=== PATIENT | female | born 1970 | race Caucasian/White ===

== ENCOUNTER 2018-07-28 15:29 | Emergency (ER) | payer OTHER, SELFPAY ==
[2018-07-28 15:33] VITALS: BP 152/89; PULSE 90; RESP 15; TEMP 36.4; O2SAT 100; BMI 28.0
--- NOTE | 2018-07-28 18:11 | DI.US.S_ITS ---
PROCEDURE: US PELVIC COMPLETE INDICATIONS: Vaginal bleeding TECHNIQUE: Real-time scanning was performed of the pelvic organs, with image documentation. Additional endovaginal scanning was necessary due to incomplete visualization of the adnexal and endometrial structures by transabdominal scanning. COMPARISON: None. FINDINGS: Transabdominal scanning: Limited scanning through the kidneys shows no hydronephrosis. No pathologic free abdominal or pelvic fluid. Endovaginal scanning: Uterus: Uterus is normal in size at 9.7 x 5.3 x 7.2 cm. The endometrium measures 5 mm in combined thickness. No gross endometrial mass or fluid. 1.8 x 1.1 x 2.1 cm intramural fibroid is seen in posterior myometrium. Ovaries: Right ovary measures 2.1 x 2.8 x 2.3 cm in size. Left ovary measures 4.4 x 3 x 4.3 cm in size. Complex cystic structures are noted in the left ovary measures 2.1 x 2.1 x 2.7 cm in size and 2.2 x 1.7 x 1.5 cm in size. No gross internal vascularity is seen. IMPRESSION: 1. 2 possible hemorrhagic cysts or complex cysts in left ovary as above. No gross solid right ovarian lesion. No evidence of laryngeal lesion. 2. No endometrial mass or fluid. 1.8 x 1.1 x 2.1 cm intramural fibroid in posterior myometrium. Dictated by: Juve Walker M.D. on 07/28/2018 at 19:50 Approved by: Juve Walker M.D. on 07/28/2018 at 19:53
--- NOTE | 2018-07-28 19:00 | DI.US.S_ITS ---
PROCEDURE: US ABDOMEN COMPLETE INDICATIONS: abd pain TECHNIQUE: Real-time scanning was performed of the abdominal and retroperitoneal organs, with image documentation. COMPARISON: None. FINDINGS: Liver: Liver is normal in size and homogeneous in echotexture. Gallbladder: Gallbladder is within normal limits. No gallbladder wall thickening or pericholecystic fluid. No sonographic Martel's sign. Biliary ducts: Intrahepatic bile ducts are non-dilated. Extrahepatic bile duct caliber measures 5 mm. Normal is 6-7 mm or less in diameter, or 10 mm or less post-cholecystectomy. Pancreas: Visualized portions of the pancreas are sonographically normal. Spleen: Spleen is normal in size and homogeneous in echotexture. Kidneys: Kidneys are normal in size and echotexture. Right kidney measures 11.2 cm long; left kidney measures 11.8 cm long. No hydronephrosis or nephrolithiasis. No solid masses. Aorta: Visualized aorta is normal in caliber at less than 3 cm. Iliacs: Proximal common iliac arteries are normal in caliber at less than 2.5 cm. IVC: Intrahepatic inferior vena cava is patent. Miscellaneous: No free abdominal fluid. IMPRESSION: Unremarkable ultrasound examination of abdomen. No finding to explain patient's symptoms. Dictated by: Juve Walker M.D. on 07/28/2018 at 19:48 Approved by: Juve Walker M.D. on 07/28/2018 at 19:50
[2018-07-28 19:08] LABS: Add Manual Diff / Slide Review NO; Basophils Percent Auto 0.8 % (0-2); Eosinophils Percent Auto 6.2 % (2-4); Hematocrit 42.6 % (36-46); Hemoglobin 14.3 g/dL (12.0-16.0); Lymphocytes Percent Auto 23.2 % (25-40); Mean Corpuscular HGB Conc 33.4 % (30-36); Mean Corpuscular Hemoglobin 32.1 PG (26-34); Mean Corpuscular Volume 96.1 fL (80-100); Monocytes Percent Auto 5.9 % (3-14); Neutrophils Absolute Auto 8600 /uL (3000-5900); Neutrophils Percent Auto 63.9 % (50-75); Platelet Count 316 X10^3/uL (150-400); Red Blood Cell Count 4.44 X10^6/uL (4.0-5.2); Red Cell Distribution Width 13.9 % (11.6-14.8); White Blood Cell Count 13.5 X10^3/uL (4.5-11.0)
[2018-07-28 19:20] LABS: Alanine Aminotransferase 28 IU/L (9-52); Albumin 4.6 g/dL (3.5-5.0); Albumin Globulin Ratio 1.5 (1.0-2.8); Alkaline Phosphatase 67 U/L (38-126); Amylase 90 U/L (30-110); Aspartate Aminotransferase 29 IU/L (14-36); Bilirubin Total 0.4 mg/dL (0.2-1.3); Blood Urea Nitrogen 16 mg/dL (7-17); Carbon Dioxide 27 mmol/L (22-32); Chloride 102 mmol/L (98-107); Estimated Glomerular Filt Rate > 60.0 mL/min (>60); Globulin 3.1 g/dL (1.7-4.1); Glucose 95 mg/dL (70-100); HEMOLYSIS 40 (0-50); Lipase 118 U/L (23-300); Potassium 3.7 mmol/L (3.4-5.1); Sodium 139 mmol/L (137-145); Total Protein 7.7 g/dL (6.3-8.2)
[2018-07-28] MEDS: SODIUM CHLORIDE 0.9% 1,000 ML 1000 ML IV (19:38)
--- NOTE | 2018-07-28 19:56 | ED_ITS ---
HPI - Abdominal Pain <ANIL Alatorre - Last Filed: 07/28/18 22:00> General Chief Complaint: Abdominal Pain Stated Complaint: ABD PAIN AND BLEEDING Time Seen by Provider: 07/28/18 18:47 Source: patient Mode of arrival: ambulatory Limitations: no limitations History of Present Illness HPI narrative: Patient is a 48-year-old female who presents with chief complaint of abdominal bloating and vaginal bleeding. She states she started feeling bloating several weeks ago on her upper right quadrant area. She saw her primary care provider, who requested she get an ultrasound. She also had a Pap smear and states that it was incredibly difficult and she has had vaginal bleeding ever since. She denies any lightheadedness dizziness. She denies any possibility of . She states she had a normal period last month but she is in during elisa menopausal area. She denies any nausea, vomiting, diarrhea, dysuria, urgency, chest pain, shortness of breath. She comes requesting ultrasounds as requested by her PCP. She states she had a bowel movement this morning. Related Data Allergies Allergy/AdvReac Type Severity Reaction Status Date / Time No Known Drug Allergies Allergy Verified 07/28/18 15:33 Review of Systems <ARGELIA Alatorre - Last Filed: 07/28/18 22:00> Review of Systems GENERAL: Denies chills, fatigue, malaise, fever, sweats. HEENT: Denies sinus pain, ear pain, sore throat, difficulty swallowing, dizziness. RESPIRATORY: Denies dyspnea, cough, wheezing, hemoptysis, sputum. CARDIOVASCULAR: Denies chest pain, palpitations, orthopnea, edema, GASTROINTESTINAL: See HPI. : see HPI MUSCULOSKELETAL: denies weakness, joint pain, or bony pain SKIN: Denies rash, skin lesions, or other NEUROLOGIC: Denies weakness, headache, numbness, change in speech, confusion, seizures, incoordination. PSYCHIATRIC: No concerning psychosocial issues. 12 point review of systems is negative except for those stated above Exam <ARGELIA Alatorre - Last Filed: 07/28/18 22:00> Narrative Exam Narrative: GENERAL: This is a well-nourished, well-developed patient, in no acute distress HEAD: Atraumatic. Normocephalic. No temporal or scalp tenderness. EYES: Pupils equal round and reactive. Extraocular motions intact. No scleral icterus. No injection or drainage. ENT: Nose without bleeding, purulent drainage or septal hematoma. Throat without erythema, tonsillar hypertrophy or exudate. Uvula midline. Airway patent. NECK: Trachea midline. No JVD or lymphadenopathy. Supple, nontender, no meningeal signs. CARDIOVASCULAR: Regular rate and rhythm without murmurs, gallops, or rubs. RESPIRATORY: Clear to auscultation. Breath sounds equal bilaterally. No wheezes , rales, or rhonchi. GASTROINTESTINAL: Abdomen soft, diffusely tender all quadrants, nondistended. No hepato-splenomegaly, or palpable masses. No guarding. active bowel sounds all quadrants. EXTREMITIES: No clubbing, cyanosis, or edema. No joint tenderness, effusion, or edema noted. BACK: Nontender without deformity or crepitance. No flank tenderness. NEURO: AOx3. Patient declined pelvic exam. SKIN: No rash or erythema. Initial Vital Signs Initial Vital Signs: Vital Signs Temperature 97.5 F L 07/28/18 15:33 Pulse Rate 90 07/28/18 15:33 Respiratory Rate 15 07/28/18 15:33 Blood Pressure 152/89 H 07/28/18 15:33 Pulse Oximetry 100 07/28/18 15:33 <Casey Red DO - Last Filed: 07/28/18 22:59> Initial Vital Signs Initial Vital Signs: Vital Signs Temperature 97.5 F L 07/28/18 15:33 Pulse Rate 90 07/28/18 15:33 Respiratory Rate 15 07/28/18 15:33 Blood Pressure 152/89 H 07/28/18 15:33 Pulse Oximetry 100 07/28/18 15:33 Course <SHON Alatorre-BC - Last Filed: 07/28/18 22:00> Orders Ordered: ED Orders 07/28/18 18:11 US pelvic complete Stat 07/28/18 19:00 US abdomen complete Stat Amylase Stat Complete Blood Count AUTO DIFF Stat Comprehensive Metabolic Panel Stat Lipase Stat Discontinued Medications Sodium Chloride (Normal Saline 0.9%) 1,000 mls @ 1,000 mls/hr IV BOLUS ONE Stop: 07/28/18 19:54 Last Infusion: 07/28/18 20:12 Dose: 0 mls/hr Admin: 07/28/18 19:38 Dose: 1,000 mls/hr Vital Signs - 8 hr 07/28/18 15:33 07/28/18 20:28 Temperature 97.5 F L Pulse Rate 90 83 Respiratory Rate 15 Blood Pressure 152/89 H 132/71 Pulse Oximetry 100 98 <Casey Red DO - Last Filed: 07/28/18 22:59> Orders Ordered: ED Orders 07/28/18 18:11 US pelvic complete Stat 07/28/18 19:00 US abdomen complete Stat Amylase Stat Complete Blood Count AUTO DIFF Stat Comprehensive Metabolic Panel Stat Lipase Stat Discontinued Medications Sodium Chloride (Normal Saline 0.9%) 1,000 mls @ 1,000 mls/hr IV BOLUS ONE Stop: 07/28/18 19:54 Last Infusion: 07/28/18 20:12 Dose: 0 mls/hr Admin: 07/28/18 19:38 Dose: 1,000 mls/hr Vital Signs - 8 hr 07/28/18 15:33 07/28/18 20:28 Temperature 97.5 F L Pulse Rate 90 83 Respiratory Rate 15 Blood Pressure 152/89 H 132/71 Pulse Oximetry 100 98 MDM - Abdominal Pain <SHON Alatorre- - Last Filed: 07/28/18 22:00> Lab Data Result diagrams: 07/28/18 19:00 07/28/18 19:00 Lab Results 07/28/18 07/28/18 Range/Units 19:00 19:00 WBC 13.5 H (4.5-11.0) X10^3/uL RBC 4.44 (4.0-5.2) X10^6/uL Hgb 14.3 (12.0-16.0) g/dL Hct 42.6 (36-46) % MCV 96.1 (80-100) fL MCH 32.1 (26-34) PG MCHC 33.4 (30-36) % RDW 13.9 (11.6-14.8) % Plt Count 316 (150-400) X10^3/uL Neut % (Auto) 63.9 (50-75) % Lymph % (Auto) 23.2 L (25-40) % Sterling % (Auto) 5.9 (3-14) % Eos % (Auto) 6.2 H (2-4) % Baso % (Auto) 0.8 (0-2) % Neut # (Auto) 8600 H (6515-9466) /uL Sodium 139 (137-145) mmol/L Potassium 3.7 (3.4-5.1) mmol/L Chloride 102 (98-107) mmol/L Carbon Dioxide 27 (22-32) mmol/L BUN 16 (7-17) mg/dL Creatinine 0.80 (0.52-1.04) mg/dL Estimated GFR > 60.0 (>60) mL/min BUN/Creatinine Ratio 20.0 (6-22) Glucose 95 (70-100) mg/dL Calcium 9.0 (8.4-10.2) mg/dL Total Bilirubin 0.4 (0.2-1.3) mg/dL AST 29 (14-36) IU/L ALT 28 (9-52) IU/L Alkaline Phosphatase 67 (38-126) U/L Total Protein 7.7 (6.3-8.2) g/dL Albumin 4.6 (3.5-5.0) g/dL Globulin 3.1 (1.7-4.1) g/dL Albumin/Globulin Ratio 1.5 (1.0-2.8) Amylase 90 (30-110) U/L Lipase 118 (23-300) U/L Point of care testing: Point of Care Testing Test Results Negative Urine Dip Bedside Urine Glucose Negative Bedside Urine Bilirubin - Negative Bedside Urine Ketone - Negative Urine Specific [place] 1.015 Bedside Urine Occult Blood +++ Bedside Urine pH 7.0 Bedside Urine Protein - Negative Bedside Urine Urobilinogen - Negative Bedside Urine Nitrite - Negative Bedside Urine Leukocytes - Negative Esterase Imaging Data US - abdomen: Radiologist's impression: [address] [address] Ultrasound Report Signed Patient: MATTHEW ABREU EMR#: [id number] : 1970Acct:[id number] Age/Sex: 48 / FDate of Service: 07/28/18 Loc: ED Accession Number: [id number] Procedure: US abdomen complete Ordering Provider: Porsha Canales [facility] PROCEDURE: US ABDOMEN COMPLETE INDICATIONS: abd pain TECHNIQUE: Real-time scanning was performed of the abdominal and retroperitoneal organs, with image documentation. COMPARISON: None. FINDINGS: Liver: Liver is normal in size and homogeneous in echotexture. Gallbladder: Gallbladder is within normal limits. No gallbladder wall thickening or pericholecystic fluid. No sonographic Martel's sign. Biliary ducts: Intrahepatic bile ducts are non-dilated. Extrahepatic bile duct caliber measures 5 mm. Normal is 6-7 mm or less in diameter, or 10 mm or less post-cholecystectomy. Pancreas: Visualized portions of the pancreas are sonographically normal. Spleen: Spleen is normal in size and homogeneous in echotexture. Kidneys: Kidneys are normal in size and echotexture. Right kidney measures 11.2 cm long; left kidney measures 11.8 cm long. No hydronephrosis or nephrolithiasis. No solid masses. Aorta: Visualized aorta is normal in caliber at less than 3 cm. Iliacs: Proximal common iliac arteries are normal in caliber at less than 2.5 cm. IVC: Intrahepatic inferior vena cava is patent. Miscellaneous: No free abdominal fluid. IMPRESSION: Unremarkable ultrasound examination of abdomen. No finding to explain patient's symptoms. Dictated by: Juve Walker M.D. on 07/28/2018 at 19:48 Approved by: Juve Walker M.D. on 07/28/2018 at 19:50 pelvic US: Radiologist's impression: [place] [address] Ultrasound Report Signed Patient: MATTHEW ABREU EMR#: [id number] : 1970Acct:[id number] Age/Sex: 48 / FDate of Service: 07/28/18 Loc: ED Accession Number: [id number] Procedure: US pelvic complete Ordering Provider: Casey Red D.O. PROCEDURE: US PELVIC COMPLETE INDICATIONS: Vaginal bleeding TECHNIQUE: Real-time scanning was performed of the pelvic organs, with image documentation. Additional endovaginal scanning was necessary due to incomplete visualization of the adnexal and endometrial structures by transabdominal scanning. COMPARISON: None. FINDINGS: Transabdominal scanning: Limited scanning through the kidneys shows no hydronephrosis. No pathologic free abdominal or pelvic fluid. Endovaginal scanning: Uterus: Uterus is normal in size at 9.7 x 5.3 x 7.2 cm. The endometrium measures 5 mm in combined thickness. No gross endometrial mass or fluid. 1.8 x 1.1 x 2.1 cm intramural fibroid is seen in posterior myometrium. Ovaries: Right ovary measures 2.1 x 2.8 x 2.3 cm in size. Left ovary measures 4.4 x 3 x 4.3 cm in size. Complex cystic structures are noted in the left ovary measures 2.1 x 2.1 x 2.7 cm in size and 2.2 x 1.7 x 1.5 cm in size. No gross internal vascularity is seen. IMPRESSION: 1. 2 possible hemorrhagic cysts or complex cysts in left ovary as above. No gross solid right ovarian lesion. No evidence of laryngeal lesion. 2. No endometrial mass or fluid. 1.8 x 1.1 x 2.1 cm intramural fibroid in posterior myometrium. Dictated by: Juve Walker M.D. on 07/28/2018 at 19:50 Approved by: Juve Walker M.D. on 07/28/2018 at 19:53 [facility] Narrative Medical decision making narrative: Patient is a 48-year-old female who presents with chief complaint of abdominal pain and vaginal bleeding. Ultrasound illustrated two left ovarian cysts of a complex nature as well as a uterine fibroid in the myometrium. I discussed at length the ultrasound results with the patient. Otherwise her lab work came back grossly normal. She does not have an acute exam. She is hemodynamically stable and nontoxic appearing. I discussed at length the ultrasound results with her and encouraged to follow up with her primary care provider or her OBGYN. Patient did decline a pelvic exam in the emergency department given the traumatic nature of her last one. She had no questions or concerns upon discharge. I discussed at length return precautions of lightheadedness, dizziness, severe bleeding, as well as worsening abdominal pain. <Casey Red, DO - Last Filed: 07/28/18 22:59> Lab Data Lab Results 07/28/18 07/28/18 Range/Units 19:00 19:00 WBC 13.5 H (4.5-11.0) X10^3/uL RBC 4.44 (4.0-5.2) X10^6/uL Hgb 14.3 (12.0-16.0) g/dL Hct 42.6 (36-46) % MCV 96.1 (80-100) fL MCH 32.1 (26-34) PG MCHC 33.4 (30-36) % RDW 13.9 (11.6-14.8) % Plt Count 316 (150-400) X10^3/uL Neut % (Auto) 63.9 (50-75) % Lymph % (Auto) 23.2 L (25-40) % [place] % (Auto) 5.9 (3-14) % Eos % (Auto) 6.2 H (2-4) % Baso % (Auto) 0.8 (0-2) % Neut # (Auto) 8600 H (5555-1556) /uL Sodium 139 (137-145) mmol/L Potassium 3.7 (3.4-5.1) mmol/L Chloride 102 (98-107) mmol/L Carbon Dioxide 27 (22-32) mmol/L BUN 16 (7-17) mg/dL Creatinine 0.80 (0.52-1.04) mg/dL Estimated GFR > 60.0 (>60) mL/min BUN/Creatinine Ratio 20.0 (6-22) Glucose 95 (70-100) mg/dL Calcium 9.0 (8.4-10.2) mg/dL Total Bilirubin 0.4 (0.2-1.3) mg/dL AST 29 (14-36) IU/L ALT 28 (9-52) IU/L Alkaline Phosphatase 67 (38-126) U/L Total Protein 7.7 (6.3-8.2) g/dL Albumin 4.6 (3.5-5.0) g/dL Globulin 3.1 (1.7-4.1) g/dL Albumin/Globulin Ratio 1.5 (1.0-2.8) Amylase 90 (30-110) U/L Lipase 118 (23-300) U/L Point of care testing: Point of Care Testing Test Results Negative Urine Dip Bedside Urine Glucose Negative Bedside Urine Bilirubin - Negative Bedside Urine Ketone - Negative Urine Specific [place] 1.015 Bedside Urine Occult Blood +++ Bedside Urine pH 7.0 Bedside Urine Protein - Negative Bedside Urine Urobilinogen - Negative Bedside Urine Nitrite - Negative Bedside Urine Leukocytes - Negative Esterase Discharge Plan Departure Patient Disposition: Home Clinical Impression: Complex cyst of left ovary, Fibroid Discharge Date/Time: 07/28/18 20:29 Interventions: ED Discharge Assessment Last Done: 07/28/18 20:28 Instructions: DI for Uterine Fibroids, DI for Ovarian Cyst, DI for Abdominal Pain-Adult Activity Restrictions/Additional Instructions: Your ultrasound showed some ovarian cysts as well as a fibroid in your uterus. Please follow-up with her primary care provider or an OBGYN. I have given you contact information for a few local OBGYN groups. Come back to the emergency department if needed. this includes lightheadedness, dizziness or any acute concerns. Referrals: [facility] [Provider Group] [facility] [Provider Group] <Casey Red DO - Last Filed: 07/28/18 22:59> Cosign ED Attending Nadine Attestation: I was available for consultation during this patient's emergency department encounter
[2018-07-28 20:28] VITALS: BP 132/71; PULSE 83; O2SAT 98
== END 2018-07-28 20:29 | disposition home or self-care (01) ==
PROVIDERS: Emergency Provider Nurse Practitioner Family
DX: N83.291 Other ovarian cyst, right side (principal); D25.9 Leiomyoma of uterus, unspecified
CPT/HCPCS: 36591; 76700; 76830; 76856; 80053; 81003; 81025; 82150; 83690; 85025; 96360; 99283; 99284

== ENCOUNTER → 2018-08-11 09:46 | Outpatient (CLI) | payer OTHER, SELFPAY ==
--- NOTE | 2018-08-11 | DI.US.S_ITS ---
PROCEDURE: US ABDOMEN COMPLETE INDICATIONS: RIGHT UPPER QUADRANT PAIN TECHNIQUE: Real-time scanning was performed of the abdominal and retroperitoneal organs, with image documentation. COMPARISON: [facility], US, US ABDOMEN COMPLETE, 07/28/2018, 19:11. FINDINGS: Liver: Liver is normal in size and demonstrates diffusely increased echotexture. Gallbladder: Gallbladder is contracted. No gallstones, pericholecystic fluid or sonographic Martel's sign. Biliary ducts: Intrahepatic bile ducts are non-dilated. Extrahepatic bile duct caliber measures 4.5 mm. Normal is 6-7 mm or less in diameter, or 10 mm or less post-cholecystectomy. Pancreas: Visualized portions of the pancreas are sonographically normal. Spleen: Spleen is normal in size and homogeneous in echotexture. Kidneys: Kidneys are normal in size and echotexture. Right kidney measures 11.8 cm long; left kidney measures 11.8 cm long. No hydronephrosis or nephrolithiasis. No solid masses. Aorta: Visualized aorta is normal in caliber at less than 3 cm. Iliacs: Proximal common iliac arteries are normal in caliber at less than 2.5 cm. IVC: Intrahepatic inferior vena cava is patent. Miscellaneous: No free abdominal fluid. IMPRESSION: 1. Diffusely increased hepatic echotexture. This finding is most likely secondary to hepatic fatty infiltration although other hepatocellular disease may have a similar appearance. Recommend clinical correlation. 2. Contracted gallbladder. Dictated by: Luis Miguel Campos M.D. on 08/11/2018 at 13:18 Approved by: Luis Miguel Campos M.D. on 08/11/2018 at 13:27
--- NOTE | 2018-08-11 | DI.US.S_ITS ---
PROCEDURE: US PELVIC COMPLETE INDICATIONS: RIGHT UPPER QUADRANT, GENERALIZED PELVIC PAIN TECHNIQUE: Real-time scanning was performed of the pelvic organs, with image documentation. Additional endovaginal scanning was necessary due to incomplete visualization of the adnexal and endometrial structures by transabdominal scanning. COMPARISON: [facility], US, US ABDOMEN COMPLETE, 07/28/2018, 19:11. [facility], US, US ABDOMEN COMPLETE, 08/11/2018, 10:06. [facility], CT, CT ABDOMEN W CON, 08/11/2018, 12:02. [facility], US, US PELVIC COMPLETE, 07/28/2018, 19:20. FINDINGS: Transabdominal scanning: No pathologic free abdominal or pelvic fluid. On the accompanying abdominal ultrasound, the kidneys demonstrate a normal appearance. Endovaginal scanning: Uterus: Uterus is normal in size at 10.6 x 4.8 x 6.4 cm. The endometrium measures 8 mm in combined thickness. Hypoechoic uterine lesions are seen, which are attributed to fibroids. They measure as follows: Left posterior uterus, subserosal 2.3 x 1.9 x 2 cm Mid posterior uterus, intramural along 1.2 x 0.8 x 1.3 cm Ovaries: The right ovary measures 2.1 x 1.1 x 1.4 cm and demonstrates a normal sonographic appearance. The left ovary measures 4.4 x 1.8 x 2.7 cm. 2 left ovarian cysts are seen that measure up to 1.7 cm each. One of these is simple in nature and the other demonstrates a mild internal echoes. IMPRESSION: Uterine fibroids are seen. Likely 1.7 cm left ovarian hemorrhagic cyst. At clinical discretion, a followup pelvic ultrasound is suggested in 6 weeks to assure resolution/ improvement. Dictated by: Rickey Dick M.D. on 08/11/2018 at 12:11 Approved by: Rickey Dcik M.D. on 08/11/2018 at 12:15
--- NOTE | 2018-08-11 | DI.CT.S_ITS ---
PROCEDURE: CT ABDOMEN W CON INDICATIONS: Right upper quadrant pain TECHNIQUE: After the administration of oral and intravenous contrast, 5 mm thick sections acquired from the diaphragms to the iliac crests. 5 mm thick coronal and sagittal reformats were acquired. For radiation dose reduction, the following was used: automated exposure control, adjustment of mA and/or kV according to patient size. COMPARISON: [facility], , US PELVIC COMPLETE, 08/11/2018, 10:25. [facility], , US ABDOMEN COMPLETE, 08/11/2018, 10:06. [facility], , US PELVIC COMPLETE, 07/28/2018, 19:20. [facility], , US ABDOMEN COMPLETE, 07/28/2018, 19:11. FINDINGS: Image quality: Excellent. Lung bases: Lung bases are clear. Heart size is normal. A small hiatal hernia is incidentally noted. Solid organs: Liver is normal in size and enhancement. Gallbladder is collapsed at the time of this study. Biliary system is non dilated. Pancreas enhances normally. Spleen is normal in size and enhancement. Incidental note is made of an accessory spleen along the hilum of the primary spleen. No adrenal nodules. Kidneys are normal in size, without hydronephrosis. Peritoneum and bowel: Contrast enhanced bowel loops appear normal in caliber. No free fluid or air. Nodes and vessels: No retroperitoneal or mesenteric adenopathy by size criteria. Aorta and inferior vena cava are normal in size. Bones: No suspicious bony lesions. No vertebral body compression fractures. Mild levoconvex scoliotic curvature is noted. Miscellaneous: No ventral hernias. IMPRESSION: No imaging explanation is found for this patient's presenting symptoms. The gallbladder is largely collapsed at time of this study. No biliary dilatation. Incidental note is made of: Accessory spleen Levoconvex scoliotic curvature Dictated by: Rickey Dick M.D. on 08/11/2018 at 12:26 Approved by: Rickey Dick M.D. on 08/11/2018 at 12:28
== END ==
PROVIDERS: PCP Physician Assistant; Visit Provider Physician Assistant
DX: R10.11 Right upper quadrant pain (principal); R10.2 Pelvic and perineal pain; D25.1 Intramural leiomyoma of uterus; D25.2 Subserosal leiomyoma of uterus; N83.292 Other ovarian cyst, left side
CPT/HCPCS: 74160; 76700; 76830; 76856; Q9967

== ENCOUNTER → 2018-09-18 12:05 | Outpatient (CLI) | payer OTHER, SELFPAY ==
--- NOTE | 2018-09-18 | DI.US.S_ITS ---
PROCEDURE: US PELVIC COMPLETE INDICATIONS: HEMORRHAGIC CYST TECHNIQUE: Real-time scanning was performed of the pelvic organs, with image documentation. Additional endovaginal scanning was necessary due to incomplete visualization of the adnexal and endometrial structures by transabdominal scanning. COMPARISON: [facility], PELVIC COMPLETE, 07/28/2018, 19:20. [facility], PELVIC COMPLETE, 08/11/2018, 10:25. FINDINGS: Transabdominal scanning: Limited scanning through the kidneys shows no hydronephrosis. No pathologic free abdominal or pelvic fluid. Endovaginal scanning: Uterus: Uterus is normal in size at 8.2 x 4.7 x 6.8 cm. The endometrium measures 4-5 mm in combined thickness. Uterine fibroids are again seen. Ovaries: The right ovary measures 1.7 x 1 x 4 x 1.1 cm and demonstrates a normal sonographic appearance. The left ovary measures 2.1 x 2.5 x 2 cm and demonstrates a 17 mm complex cyst within it, without increased vascularity. IMPRESSION: Persistent 17 mm complex cyst seen of the left ovary, which most likely represents a hemorrhagic cyst. If clinically appropriate, an additional followup pelvic ultrasound could be considered in 6 weeks for further evaluation. Dictated by: Rickey Dick M.D. on 09/18/2018 at 14:58 Approved by: Rickey Dick M.D. on 09/18/2018 at 15:01
== END ==
PROVIDERS: PCP Physician Assistant; Visit Provider Physician Assistant
DX: N83.209 Unspecified ovarian cyst, unspecified side (principal)
CPT/HCPCS: 76830; 76856

== ENCOUNTER → 2018-09-27 12:05 | Outpatient (CLI) | payer OTHER, SELFPAY ==
[2018-09-27 14:00] LABS: Cancer Antigen 125 21 U/mL (0-35)
== END ==
PROVIDERS: PCP Physician Assistant; Visit Provider Specialist
DX: N83.292 Other ovarian cyst, left side (principal); R14.0 Abdominal distension (gaseous)
CPT/HCPCS: 36415; 86304

== ENCOUNTER → 2019-01-06 12:23 | Outpatient (CLI) | payer OTHER, SELFPAY ==
--- NOTE | 2019-01-06 | DI.MG.S_ITS ---
BILATERAL DIGITAL SCREENING MAMMOGRAM 3D/2D WITH CAD: 01/06/2019 CLINICAL: Routine screening. Family history of breast cancer. Comparison is made to exams dated: 07/19/2017 mammogram, 04/26/2015 mammogram, and 05/08/2013 mammogram - [facility]. The tissue of both breasts is heterogeneously dense. This may lower the sensitivity of mammography. Current study was also evaluated with a Computer Aided Detection (CAD) system. No significant masses, calcifications, or other findings are seen in either breast. There has been no significant interval change. IMPRESSION: NEGATIVE There is no mammographic evidence of malignancy. A 1 year screening mammogram is recommended. This exam was interpreted at Station ID: [id number]. NOTE: For mammograms, a report in lay terms will be sent to the patient. Approximately 15% of breast malignancies will not be visualized mammographically. In the management of a palpable breast mass, a negative mammogram must not discourage biopsy of a clinically suspicious lesion. Electronically Signed By: Wang harman/jose:01/08/2019 07:49:12 letter sent: Normal Exam ACR BI-RADS Category 1: Negative [id number]
== END ==
PROVIDERS: PCP Physician Assistant; Visit Provider Physician Assistant
DX: Z12.31 Encounter for screening mammogram for malignant neoplasm of breast (principal); Z80.3 Family history of malignant neoplasm of breast
CPT/HCPCS: 77063; 77067

== ENCOUNTER → 2019-08-28 13:16 | Outpatient (CLI) | payer OTHER, SELFPAY ==
--- NOTE | 2019-08-28 | DI.US.S_ITS ---
PROCEDURE: US PELVIC COMPLETE INDICATIONS: FOLLOW UP PELVIC, PELVIC FULLNESS TECHNIQUE: Real-time scanning was performed of the pelvic organs, with image documentation. Additional endovaginal scanning was necessary due to incomplete visualization of the adnexal and endometrial structures by transabdominal scanning. COMPARISON: [facility], US, US PELVIC COMPLETE, 09/18/2018, 12:25. FINDINGS: Transabdominal scanning: Limited scanning through the kidneys shows no hydronephrosis. No pathologic free abdominal or pelvic fluid. Endovaginal scanning: Uterus: Uterus is normal in size at 8.7 x 6.4 x 3.9 cm. The endometrium measures 4 mm in combined thickness. Heterogeneous uterine echotexture as before with several uterine fibroids. The largest measures approximately 1.9 cm in size. Ovaries: The right ovary measures 2.2 x 1.6 x 1.5 cm. Left ovary measures 1.8 x 0.8 x 0.9 cm. Both ovaries appear normal in sonographic appearance. Previously described complicated left ovarian cyst has resolved. IMPRESSION: 1. Pelvic ultrasound without acute sonographic abnormalities. 2. Redemonstration of fibroid uterus. 3. Normal sonographic appearance of the bilateral ovaries with interval resolution of previously described 17 mm complicated left ovarian cyst. Dictated by: Wang Hampton M.D. on 08/28/2019 at 17:02 Approved by: Wang Hampton M.D. on 08/28/2019 at 17:06
== END ==
PROVIDERS: PCP Physician Assistant; Visit Provider Physician Assistant Medical
DX: R14.0 Abdominal distension (gaseous) (principal); D25.9 Leiomyoma of uterus, unspecified
CPT/HCPCS: 76856

== ENCOUNTER → 2020-03-10 14:02 | Outpatient (CLI) | payer OTHER, SELFPAY ==
--- NOTE | 2020-03-10 | DI.MRI.S_ITS ---
PROCEDURE: MR ANKLE RT WO CON INDICATIONS: Unspecified injury of muscle(s) and tendon(s) TECHNIQUE: Noncontrast sagittal T1 spin echo and T2 fast spin echo with fat saturation, axial proton density fast spin echo and T2 fast spin echo with fat saturation, coronal T1 spin echo and T2 fast spin echo with fat saturation through the ankle/hindfoot. COMPARISON: None. FINDINGS: Image quality: Excellent. Bones and joints: Mild ankle soft tissue swelling is seen. No fracture or dislocation. Mild bony edema involving lateral malleolus tip and medial periphery of medial malleolus is seen.. No hindfoot coalitions. No osteochondral injuries of the talar dome. Small amount of tibiotalar and subtalar joint effusion is seen. Medial structures: There is low-grade tenosynovitis involving the posterior tibialis tendon. No evidence of tendon rupture. The flexor digitorum longus, and flexor hallucis longus tendons are intact. The posterior tibial neurovascular bundle appears normal within the tarsal tunnel, without extrinsic mass effect. The deep layer (anterior and posterior tibiotalar ligaments) and superficial layer (tibionavicular, tibiospring, and tibiocalcaneal ligaments) of the deltoid ligament appear normal. The spring ligament components (superomedial calcaneonavicular, medioplantar oblique calcaneonavicular, and inferoplantar longitudinal ligaments) are intact. Lateral structures: The anterior talofibular, calcaneofibular, and posterior talofibular ligaments appear thickened with intrasubstance fluid signal suggestive of sprain/low to moderate grade partial-thickness tear.. More superiorly, the anterior and posterior tibiofibular ligaments also appears thickened with intrasubstance fluid signal. The tibiofibular syndesmosis is widened and measures up to 4 mm. Tendinosis or low-grade partial-thickness tear involving the peroneus tendons at the level of subtalar joint/calcaneus is seen. Adjacent bony peroneal tubercle and retrotrochlear prominence are normal in size. The sinus tarsi demonstrates normal fatty signal, without edema, fibrosis, or cyst formation. Visualized sinus tarsi components (cervical ligament, interosseous talocalcaneal ligament, roots of the inferior extensor retinaculum) appear normal. The calcaneonavicular and calcaneocuboid components of the bifurcate ligament appear intact. The dorsal calcaneocuboid ligament appears intact. Anterior structures: The tibialis anterior, extensor hallucis longus, and extensor digitorum longus tendons appear intact. The dorsal talonavicular ligament appears intact. Posterior and plantar structures: Achilles tendon is intact. Medial and lateral bands of the plantar fascia are of normal thickness. No abductor digiti quinti muscle atrophy to suggest Burgess neuropathy. IMPRESSION: 1. Low-grade tenosynovitis involving posterior tibialis tendon. Tendinosis and low-grade partial-thickness tear involving peroneus tendons at the level of subtalar joint/calcaneus. No full-thickness tendon rupture. 2. Sprain/low to moderate grade partial-thickness tear involving lateral ankle ligaments with widening of distal tibiofibular syndesmosis. 3. Mild ankle soft tissue swelling. No fracture or dislocation. Mild contusion involving tip of lateral malleolus and medial periphery of medial malleolus. Dictated by: Juve Walker M.D. on 03/10/2020 at 16:59 Approved by: Juve Walker M.D. on 03/10/2020 at 17:07
== END ==
PROVIDERS: PCP Family Medicine; Referring Provider Podiatrist; Visit Provider Podiatrist
DX: S93.491A Sprain of other ligament of right ankle, initial encounter (principal); S90.01XA Contusion of right ankle, initial encounter; M65.861 Other synovitis and tenosynovitis, right lower leg; M79.89 Other specified soft tissue disorders
CPT/HCPCS: 73721

== ENCOUNTER → 2020-12-10 12:42 | Outpatient (CLI) | payer OTHER, SELFPAY ==
--- NOTE | 2020-12-10 12:44 | DI.MRI.S_ITS ---
PROCEDURE: MR WRIST RT WO CON INDICATIONS: Pain in right wrist TECHNIQUE: Noncontrast coronal proton density fast spin echo and T2 fast spin echo with fat saturation; coronal 3-D gradient echo, axial T1 spin echo and T2 fast spin echo with fat saturation, sagittal T1 spin echo through the wrist. COMPARISON: None. FINDINGS: Image quality: Excellent. Bones and cartilage: The carpal bones are normally aligned. No bone marrow contusions or fractures. Marrow edema and cystic change present in the lunate. There is also marrow edema within the distal radius and triquetral. No evidence for avascular necrosis. Distal radioulnar joint degeneration is present with small joint effusion. Scattered degenerative subchondral sclerosis and spurring. Carpal ligaments: The scapholunate and lunotriquetral ligaments appear intact. Triangular fibrocartilage complex: Surg components of the triangular fibrocartilage are not well visualized, with amorphous internal signal in the central disc. The meniscal homolog is not well identified and could be frayed. There is extensor carpi ulnaris tendinopathy and tenosynovitis. There is at least partial-thickness chondral loss of the proximal lunate and distal radius/ulna Tendons and soft tissues: Diffuse edema present within the pronator quadratus could be reactive versus strain. The carpal tunnel structures appear normal, including the median nerve. The ulnar nerve appears normal within Guyon's canal. Extensor carpi radialis longus and brevis tenosynovitis. There is also extensor pollicis longus and flexor digitorum tenosynovitis. No soft tissue ganglion cysts. 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 Poorly defined appearance of the triangular fibrocartilage complex which could reflect degenerative tear, including the extensor carpi ulnaris. Extensor carpi ulnaris tendinopathy. Partial-thickness chondral loss of the lunate, distal ulna and radius. Mild tenosynovitis involving the extensor carpi radialis longus and brevis, as well as the extensor pollicis longus and flexor digitorum. Pronator quadratus edema, which could be reactive to degenerative changes versus acute strain Dictated by: Jose Dominguez M.D. on 12/10/2020 at 14:07 Approved by: Jose Dominguez M.D. on 12/10/2020 at 14:27
== END ==
PROVIDERS: PCP Family Medicine; Referring Provider Orthopaedic Surgery; Visit Provider Orthopaedic Surgery
DX: M19.031 Primary osteoarthritis, right wrist (principal); R60.0 Localized edema; M65.88 Other synovitis and tenosynovitis, other site
CPT/HCPCS: 73221

== ENCOUNTER → 2020-12-27 12:36 | Outpatient (CLI) | payer OTHER, SELFPAY ==
--- NOTE | 2020-12-27 | DI.MG.S_ITS ---
BILATERAL DIGITAL SCREENING MAMMOGRAM 3D/2D WITH CAD: 12/27/2020 CLINICAL: Routine screening. Family history of breast cancer. Comparison is made to exams dated: 01/06/2019 mammogram - [facility], 07/19/2017 mammogram, and 04/26/2015 mammogram - [facility]. The tissue of both breasts is heterogeneously dense. This may lower the sensitivity of mammography. Current study was also evaluated with a Computer Aided Detection (CAD) system. No significant masses, calcifications, or other findings are seen in either breast. There has been no significant interval change. IMPRESSION: NEGATIVE There is no mammographic evidence of malignancy. A 1 year screening mammogram is recommended. This exam was interpreted at Station ID: [id number]. NOTE: For mammograms, a report in lay terms will be sent to the patient. Approximately 15% of breast malignancies will not be visualized mammographically. In the management of a palpable breast mass, a negative mammogram must not discourage biopsy of a clinically suspicious lesion. Electronically Signed By: Wang harman/jose:12/29/2020 07:26:28 letter sent: Normal Exam ACR BI-RADS Category 1: Negative 3341F
== END ==
PROVIDERS: PCP Family Medicine; Referring Provider Family Medicine; Visit Provider Family Medicine
DX: Z12.31 Encounter for screening mammogram for malignant neoplasm of breast (principal)
CPT/HCPCS: 77063; 77067

== ENCOUNTER → 2022-01-25 08:16 | Outpatient (CLI) | payer OTHER, SELFPAY ==
--- NOTE | 2022-01-25 | DI.MG.S_ITS ---
BILATERAL DIGITAL SCREENING MAMMOGRAM 3D/2D WITH CAD: 01/25/2022 CLINICAL: Routine screening. Family history of breast cancer. Comparison is made to exams dated: 12/27/2020 mammogram, 01/06/2019 mammogram - [facility], and 07/19/2017 mammogram - [facility]. The tissue of both breasts is heterogeneously dense. This may lower the sensitivity of mammography. Current study was also evaluated with a Computer Aided Detection (CAD) system. There is a 0.6 cm oval equal density focal asymmetry in the right breast at 10 o'clock posterior depth. This is more prominent and increased in size. There also is a 0.8 cm oval equal density focal asymmetry in the right breast at 6 o'clock posterior depth. This is more prominent and increased in size. No other significant masses, calcifications, or other findings are seen in either breast. IMPRESSION: INCOMPLETE: NEEDS ADDITIONAL IMAGING EVALUATION The 0.6 cm oval equal density focal asymmetry in the right breast at 10 o'clock posterior depth resembles a cyst or a lymph node and is indeterminate. Additional views with possible ultrasound are recommended. The 0.8 cm oval equal density focal asymmetry in the right breast at 6 o'clock posterior depth resembles a cyst or a lymph node and is indeterminate. Additional views with possible ultrasound are recommended. This exam was interpreted at Station ID: [id number]. NOTE: For mammograms, a report in lay terms will be sent to the patient. Approximately 15% of breast malignancies will not be visualized mammographically. In the management of a palpable breast mass, a negative mammogram must not discourage biopsy of a clinically suspicious lesion. Electronically Signed By: Wang Hampton M.D. aty/:01/25/2022 09:58:49 letter sent: Additional Imaging Needed ACR BI-RADS Category 0: Incomplete 3340F
== END ==
PROVIDERS: PCP Physician Assistant; Referring Provider Physician Assistant; Visit Provider Physician Assistant
DX: Z12.31 Encounter for screening mammogram for malignant neoplasm of breast (principal); Z80.3 Family history of malignant neoplasm of breast
CPT/HCPCS: 77063; 77067

== ENCOUNTER → 2022-02-23 08:06 | Outpatient (CLI) | payer OTHER, SELFPAY ==
--- NOTE | 2022-02-23 | DI.MG.S_ITS ---
UNILATERAL RIGHT DIGITAL DIAGNOSTIC MAMMOGRAM 3D/2D WITH ADDITIONAL VIEWS: 02/23/2022 CLINICAL: Additional evaluation requested from prior study. Comparison is made to exams dated: 01/25/2022 mammogram, 12/27/2020 mammogram, and 01/06/2019 mammogram - [facility]. The tissue of right breast is heterogeneously dense. This may lower the sensitivity of mammography. There is a 0.6 cm oval equal density focal asymmetry in the right breast at 9 o'clock posterior depth. This is seen in additional views. This is more prominent. There also is a 0.8 cm oval equal density focal asymmetry in the right breast at 6 o'clock middle depth. This is seen in additional views. This is more prominent. No other significant masses or calcifications are seen in the breast. IMPRESSION: INCOMPLETE: NEEDS ADDITIONAL IMAGING EVALUATION The 0.6 cm oval equal density focal asymmetry in the right breast at 9 o'clock posterior depth resembles a cyst or a lymph node and is indeterminate. An ultrasound is recommended. The 0.8 cm oval equal density focal asymmetry in the right breast at 6 o'clock middle depth resembles a cyst or a lymph node and is indeterminate. An ultrasound is recommended. This exam was interpreted at Station ID: [id number]. NOTE: For mammograms, a report in lay terms will be sent to the patient. Approximately 15% of breast malignancies will not be visualized mammographically. In the management of a palpable breast mass, a negative mammogram must not discourage biopsy of a clinically suspicious lesion. Electronically Signed By: Nayan armstrong/jose:02/23/2022 09:40:10 ACR BI-RADS Category 0: Incomplete 3340F
--- NOTE | 2022-02-23 08:07 | DI.US.S_ITS ---
LIMITED ULTRASOUND OF RIGHT BREAST: 02/23/2022 CLINICAL: Patient returns today to evaluate two areas of asymmetry in the right breast. Comparison is made to exams dated: 02/23/2022 mammogram, 01/25/2022 mammogram, 12/27/2020 mammogram, and 01/06/2019 mammogram - [facility]. Color flow and real-time ultrasound of the right breast 6 o'clock and 9 o'clock regions were performed. Rodriguez scale images of the real-time examination were reviewed. There is a 0.7 cm x 0.7 cm x 0.4 cm oval cyst with a smooth internal wall in the right breast at 6 o'clock middle depth 7 cm from the nipple. This oval cyst is hypoechoic with posterior acoustic enhancement. This correlates with mammography findings. Color flow imaging demonstrates that there is no vascularity present. There also is a benign 0.5 cm x 0.6 cm x 0.3 cm oval cyst with a smooth internal wall in the right breast at 9 o'clock posterior depth 10 cm from the nipple. This oval cyst is anechoic with posterior acoustic enhancement. This correlates with mammography findings. Color flow imaging demonstrates that there is no vascularity present. IMPRESSION: PROBABLY BENIGN The 0.7 cm x 0.7 cm x 0.4 cm oval cyst in the right breast at 6 o'clock middle depth is consistent with a complicated cyst and is probably benign. The 0.5 cm x 0.6 cm x 0.3 cm oval cyst in the right breast at 9 o'clock posterior depth is consistent with a simple cyst and is benign. A follow-up right ultrasound in 6 months is recommended to demonstrate stability. This exam was interpreted at Station ID: [id number]. Electronically Signed By: Nayan armstrong/jose:02/23/2022 09:42:50 letter sent: Followup Recommended Ultrasound BI-RADS: 3 Probably benign
== END ==
PROVIDERS: PCP Physician Assistant; Referring Provider Physician Assistant; Visit Provider Physician Assistant
DX: R92.8 Other abnormal and inconclusive findings on diagnostic imaging of breast (principal); N60.01 Solitary cyst of right breast; N64.89 Other specified disorders of breast
CPT/HCPCS: 76642; 77065; G0279

== ENCOUNTER → 2022-09-07 13:27 | Outpatient (CLI) | payer OTHER, SELFPAY ==
--- NOTE | 2022-09-07 13:27 | DI.US.S_ITS ---
ULTRASOUND OF RIGHT BREAST: 09/07/2022 CLINICAL: 6 month follow-up of cysts. Comparison is made to exams dated: 02/23/2022 ultrasound and 02/23/2022 mammogram - [facility]. Color flow and real-time ultrasound of the right breast were performed. Rodriguez scale images of the real-time examination were reviewed. There is a 0.6 cm x 0.4 cm x 0.8 cm probable complicated cyst in the right breast at 6 o'clock middle depth 7 cm from the nipple. This correlates with mammography findings. IMPRESSION: PROBABLY BENIGN The 0.6 cm x 0.4 cm x 0.8 cm probable complicated cyst in the right breast is probably benign. A follow-up ultrasound in 6 months is recommended. Patient will be due for bilateral mammography at that time. This exam was interpreted at Station ID: [id number]. Electronically Signed By: Geo Asif M.D. /:09/09/2022 14:49:31 Entry: - 09/09/2022 14:49:31 letter sent: Followup Recommended Ultrasound BI-RADS: 3 Probably benign
== END ==
PROVIDERS: PCP Physician Assistant; Referring Provider Physician Assistant; Visit Provider Physician Assistant
DX: R92.8 Other abnormal and inconclusive findings on diagnostic imaging of breast (principal); N60.01 Solitary cyst of right breast; F90.2 Attention-deficit hyperactivity disorder, combined type; F33.2 Major depressive disorder, recurrent severe without psychotic features; F41.9 Anxiety disorder, unspecified
CPT/HCPCS: 76642; 99214

== ENCOUNTER → 2022-11-09 10:40 | Outpatient (CLI) | payer OTHER, SELFPAY ==
[2022-11-09 19:21] LABS: Alanine Aminotransferase 31 IU/L (<35); Albumin 4.2 g/dL (3.5-5.0); Albumin Globulin Ratio 1.6 (1.0-2.8); Alkaline Phosphatase 80 U/L (38-126); Aspartate Aminotransferase 26 IU/L (14-36); Bilirubin Total 0.4 mg/dL (0.2-1.3); Blood Urea Nitrogen 16 mg/dL (7-17); Calcium 9.6 mg/dL (8.4-10.2); Carbon Dioxide 31 mmol/L (22-32); Chloride 103 mmol/L (98-107); Cholesterol 178 mg/dL (140-199); Estimated Glomerular Filt Rate > 60 mL/min (>60); Globulin 2.7 g/dL (1.7-4.1); Glucose 102 mg/dL (70-100); HDL Cholesterol 61 mg/dL (40-60); HEMOLYSIS < 15 (0-50); LDL Cholesterol Calculated 89 mg/dL (<100); Potassium 4.3 mmol/L (3.4-5.1); Sodium 141 mmol/L (137-145); Total Protein 6.9 g/dL (6.3-8.2); Triglycerides 140 mg/dL (35-150)
[2022-11-09 19:24] LABS: Add Manual Diff / Slide Review NO; Basophils Absolute Auto 300 /uL (0-100); Basophils Percent Auto 2.2 % (0-2); Eosinophils Absolute Auto 600 /uL (0-450); Eosinophils Percent Auto 4.7 % (2-4); Hematocrit 39.9 % (36-46); Hemoglobin 13.5 g/dL (12.0-16.0); Lymphocytes Absolute Auto 3900 /uL (1100-4500); Lymphocytes Percent Auto 31.1 % (25-40); Mean Corpuscular HGB Conc 33.8 % (30-36); Mean Corpuscular Volume 94.8 fL (80-100); Monocytes Absolute Auto 700 /uL (0-900); Monocytes Percent Auto 5.9 % (3-14); Neutrophils Absolute Auto 7000 /uL (1500-7000); Neutrophils Percent Auto 56.1 % (50-75); Platelet Count 353 X10^3/uL (150-400); Red Blood Cell Count 4.21 X10^6/uL (4.0-5.2); Red Cell Distribution Width 12.9 % (11.6-14.8); White Blood Cell Count 12.5 X10^3/uL (4.5-11.0)
[2022-11-09 19:52] LABS: TSH w/ Reflex to FT4 1.16 uIU/mL (0.47-4.68)
== END ==
PROVIDERS: PCP Physician Assistant; Visit Provider Physician Assistant
DX: I10 Essential (primary) hypertension (principal); R41.89 Other symptoms and signs involving cognitive functions and awareness; R47.89 Other speech disturbances; Z13.220 Encounter for screening for lipoid disorders; Z13.6 Encounter for screening for cardiovascular disorders
CPT/HCPCS: 80053; 80061; 84443; 85025

== ENCOUNTER → 2022-12-24 10:19 | Outpatient (CLI) | payer OTHER, SELFPAY ==
--- NOTE | 2022-12-24 | DI.MG.S_ITS ---
BILATERAL DIGITAL DIAGNOSTIC MAMMOGRAM 3D/2D: 12/24/2022 CLINICAL: New right lump. Short term F/u Right. Comparison is made to exams dated: 09/07/2022 ultrasound, 02/23/2022 ultrasound, 02/23/2022 mammogram, 01/25/2022 mammogram, and 12/27/2020 mammogram - [facility]. Both breasts are heterogeneously dense, which may obscure small masses (category c / 51-75% glandular tissue). There is an oval focal asymmetry in the right breast at 6 o'clock middle depth. This is less prominent. No mass at the right breast palpable site is seen. No other significant masses, calcifications, or other findings are seen in either breast. IMPRESSION: INCOMPLETE: NEEDS ADDITIONAL IMAGING EVALUATION The oval focal asymmetry in the right breast is indeterminate. No mass at the right breast palpable site is seen. A targeted ultrasound is recommended and will immediately follow. Based on the Tyrer Cuzick model (a risk assessment model) the patient's lifetime risk is 19.6% and her 10 year risk is 5.1%. According to the ACR, ACS, and NCCN guidelines, an annual breast MRI exam along with mammogram is recommended if the patient's lifetime risk is 20% or greater. This exam was interpreted at Station ID: [id number]. NOTE: For mammograms, a report in lay terms will be sent to the patient. Approximately 15% of breast malignancies will not be visualized mammographically. In the management of a palpable breast mass, a negative mammogram must not discourage biopsy of a clinically suspicious lesion. Electronically Signed By: Salvador De Leon M.D. [facility] [place]/:12/24/2022 11:11:42 ACR BI-RADS Category 0: Incomplete 3340F
--- NOTE | 2022-12-24 10:21 | DI.US.S_ITS ---
LIMITED ULTRASOUND OF RIGHT BREAST: 12/24/2022 CLINICAL: 6 Month follow-up plus new lump. Comparison is made to exams dated: 09/07/2022 ultrasound, 02/23/2022 ultrasound, 02/23/2022 mammogram, 12/24/2022 mammogram, 01/25/2022 mammogram, and 12/27/2020 mammogram - [facility]. Color flow and real-time ultrasound of the right breast 6 o'clock and 8 o'clock regions were performed. Rodriguez scale images of the real-time examination were reviewed. There is a 0.4 cm x 0.4 cm x 0.3 cm oval complicated cyst in the right breast at 6 o'clock middle depth 7 cm from the nipple. This oval complicated cyst is hypoechoic. This abnormality is decreased in size. Color flow imaging demonstrates that there is an adjacent vascularity. There also is a benign normal lymph node in the right breast at 8 o'clock posterior depth. This correlates as palpated. Color flow imaging demonstrates that there is an adjacent vascularity. IMPRESSION: PROBABLY BENIGN The 0.4 cm complicated cyst in the right breast at 6 o'clock middle depth is probably benign. A follow-up ultrasound in 12 months is recommended to demonstrate long-term stability. Patient will be due for mammogram at that time. Small palpable lymph node in the right breast at 8 o'clock posterior depth is benign. Exam findings were conveyed to the patient. Patient is advised to monitor for significant change. Clinical follow-up as needed. This exam was interpreted at Station ID: [id number]. Electronically Signed By: Salvador De Leon M.D. [facility] [place]/:12/24/2022 12:28:35 letter sent: Followup Recommended Ultrasound BI-RADS: 3 Probably benign
== END ==
PROVIDERS: PCP Physician Assistant; Referring Provider Physician Assistant; Visit Provider Physician Assistant
DX: R92.8 Other abnormal and inconclusive findings on diagnostic imaging of breast (principal); N60.01 Solitary cyst of right breast; N64.89 Other specified disorders of breast
CPT/HCPCS: 76642; 77066; G0279

== ENCOUNTER → 2023-06-20 10:13 | Outpatient (CLI) | payer OTHER, SELFPAY ==
--- NOTE | 2023-06-20 10:15 | DI.US.S_ITS ---
LIMITED ULTRASOUND OF RIGHT BREAST: 06/21/2023 CLINICAL: Patient presents with a stich from a right skin bx from last week. She had an episode of a painful red area that came up suddenly in same area. No CBE performed. No prior exams were available for comparison. Color flow and real-time ultrasound of the right breast 11 o'clock region were performed. No sonographic abnormality is seen in the area of clinical concern at 11 o'clock in the retroareolar region at the site of recent skin punch biopsy. IMPRESSION: NEGATIVE No sonographic or mammographic abnormality in the area of clinical concern at 11 o'clock at the site of recent skin punch biopsy. If there is ongoing clinical concern for inflammatory breast cancer, recommend further evaluation with breast MRI. Patient will be due for bilateral mammogram and right breast ultrasound in 6 months (November 2023) for follow up of probably benign finding in the right breast at 6 o'clock. Clinical follow-up is also recommended, and further management of palpable abnormalities or other focal signs or symptoms should be based on the results of clinical evaluation. If focal symptoms persist or become more focal in nature, further clinical evaluation should be considered. Findings and recommendations were conveyed to the patient during today's evaluation. This exam was interpreted at Station ID: [id number]. Electronically Signed By: Margaret kaur/:06/21/2023 23:25:13 letter sent: Clinical Evaluation Ultrasound BI-RADS: 1 Negative
--- NOTE | 2023-06-20 10:15 | DI.MG.S_ITS ---
UNILATERAL RIGHT DIGITAL DIAGNOSTIC MAMMOGRAM 3D/2D: 06/20/2023 CLINICAL: Patient presents with a stich from a right skin bx from last week. She had an episode of a painful red area that came up suddenly in same area. No CBE performed. Comparison is made to exams dated: 12/24/2022 mammogram, 02/23/2022 mammogram, 01/25/2022 mammogram, 12/27/2020 mammogram, and 01/06/2019 mammogram - [facility]. The right breast is heterogeneously dense, which may obscure small masses (category c / 51-75% glandular tissue). A BB marker was placed in the area of clinical concern, and no mammographic abnormality is identified. No significant masses, calcifications, or other findings are seen in the breast. IMPRESSION: INCOMPLETE: NEEDS ADDITIONAL IMAGING EVALUATION No mammographic evidence of malignancy. Recommend further evaluaton with targeted breast ultrasound in area of clinical concern, which will immediately follow this exam. Based on the Tyrer Cuzick model (a risk assessment model) the patient's lifetime risk is 19.4% and her 10 year risk is 5.2%. According to the ACR, ACS, and NCCN guidelines, an annual breast MRI exam along with mammogram is recommended if the patient's lifetime risk is 20% or greater. This exam was interpreted at Station ID: [id number]. NOTE: For mammograms, a report in lay terms will be sent to the patient. Approximately 15% of breast malignancies will not be visualized mammographically. In the management of a palpable breast mass, a negative mammogram must not discourage biopsy of a clinically suspicious lesion. Electronically Signed By: Margaret francob/:06/20/2023 11:54:32 ACR BI-RADS Category 0: Incomplete 3340F
== END ==
PROVIDERS: PCP Family Medicine; Referring Provider Family Medicine; Visit Provider Family Medicine
DX: R92.2 Inconclusive mammogram (principal); N63.10 Unspecified lump in the right breast, unspecified quadrant; N64.4 Mastodynia
CPT/HCPCS: 76642; 77065; G0279

== ENCOUNTER → 2024-01-17 11:37 | Outpatient (CLI) | payer OTHER, SELFPAY ==
--- NOTE | 2024-01-17 11:41 | DI.US.S_ITS ---
LIMITED ULTRASOUND OF RIGHT BREAST: 01/17/2024 CLINICAL: Late 6 month follow-up of cyst. Comparison is made to exams dated: 06/20/2023 mammogram, 01/17/2024 mammogram, 06/21/2023 ultrasound, 12/24/2022 mammogram, 02/23/2022 ultrasound, and 01/25/2022 mammogram - [facility]. Color flow and real-time ultrasound of the right breast 6 o'clock region were performed. Rodriguez scale images of the real-time examination were reviewed. There is a benign 0.4 cm x 0.4 cm x 0.3 cm oval complicated cyst in the right breast at 6 o'clock middle depth 7 cm from the nipple. This oval complicated cyst is hypoechoic. This abnormality is not significantly changed. Color flow imaging demonstrates that there is no vascularity present. The cyst previously measured 0.7 cm on 02/23/2022. IMPRESSION: BENIGN There is no sonographic evidence of malignancy. The 0.4 cm complicated cyst in the right breast is decreased over time and is benign. A 1 year screening mammogram is recommended. Exam findings were conveyed to the patient. This exam was interpreted at Station ID: [id number]. Electronically Signed By: Salvador De Leon M.D. [facility] [place], [place]/:01/17/2024 13:49:29 letter sent: Normal Exam Ultrasound BI-RADS: 2 Benign
--- NOTE | 2024-01-17 11:41 | DI.MRI.S_ITS ---
BREAST MRI OF BOTH BREASTS: 01/18/2024 CLINICAL: Short term follow up. PROCEDURE: MR BREAST BI WO/W CON INDICATIONS: Follow up per previous MMG 06/20/23 TECHNIQUE: The patient was placed prone in a dedicated breast imaging coil. Precontrast axial STIR and 3D FLASH without fat saturation sequences were obtained. Both before and after bolus injection of contrast, sequential 1-minute axial 3D FLASH with fat saturation sequences for 3 time points, with subtraction images and maximum intensity projections (MIP's) generated. Delayed sagittal FLASH images with fat saturation were also obtained. CONTRAST: 20 cc ProHance IV contrast. Computer-aided detection, including computer algorithm analysis of MRI image data for lesion detection and characterization, pharmacokinetic analysis, with further physician review for interpretation, was performed. COMPARISON: [facility], US BREAST RT LIMITED, 01/17/2024, 13:08. [facility], MM DIAGNOSTIC MAMMO BI, 01/17/2024, 12:29. [facility], BREAST RT LIMITED, 06/20/2023, 11:16. [facility], MM DIAGNOSTIC MAMMO UNILAT RT, 06/20/2023, 10:38. [facility], US BREAST RT LIMITED, 12/24/2022, 11:26. [facility], MM DIAGNOSTIC MAMMO BI, 12/24/2022, 10:42. [facility], MM SCREENING MAMMO BI, 01/25/2022, 8:31. FINDINGS: Image quality: Excellent. There is moderate background parenchymal enhancement. Right breast: Multiple small T2 hyperintense cysts. No mass or suspicious enhancement. Left breast: Multiple small T2 hyperintense cysts. No mass or suspicious enhancement. Miscellaneous: No enlarged lymph nodes. IMPRESSION: BENIGN Moderate background parenchymal enhancement somewhat limits sensitivity. No mass or suspicious enhancement. No enlarged lymph nodes. Multiple small T2 hyperintense cysts are benign. BIRADS 2 A 1 year screening mammogram is recommended. COMMENT: The imaging literature indicates that a negative contrast breast MRI examination has a high sensitivity and a moderate specificity for detecting and excluding invasive carcinomas to a detection threshold of 3-5 mm; nonetheless, appropriate clinical and mammographic follow-up are recommended. MRI is not sensitive for detecting DCIS (ductal carcinoma in situ) and may not detect large invasive neoplasms that show only minimal enhancement such as mucinous carcinoma. If there are suspicious calcifications or clinically worrisome palpable masses, then biopsy should still be considered. Invasive neoplasms can be hidden by co-existent and benign enhancement caused by mastitis, hormone therapy effects, radiation therapy, , and recent biopsy or surgery. False positive examinations can occur in a number of circumstances, including breasts that have recently been subject to invasive procedures and those that contain atypical ductal hyperplasia, hormonally stimulated glandular tissue, fat necrosis, or radial scars. Dictated by: Salvador De Leon M.D. on 01/17/2024 at 17:09 This exam was interpreted at Station ID: [id number]. Electronically Signed By: Salvador De Leon M.D. slc/:01/18/2024 14:09:15 letter sent: Normal Exam ACR BI-RADS Category 2: Benign Finding(s) 3342F
--- NOTE | 2024-01-17 11:41 | DI.MG.S_ITS ---
BILATERAL DIGITAL DIAGNOSTIC MAMMOGRAM 3D/2D SHORT-TERM FOLLOW-UP: 01/17/2024 CLINICAL: Short term follow up from prior exam. Comparison is made to exams dated: 06/20/2023 mammogram, 12/24/2022 mammogram, 02/23/2022 mammogram, 01/25/2022 mammogram, 12/27/2020 mammogram, and 12/24/2022 [facility]. Both breasts are heterogeneously dense, which may obscure small masses (category c / 51-75% glandular tissue). There is an oval focal asymmetry in the right breast at 6 o'clock middle depth. This is not significantly changed. No other significant masses, calcifications, or other findings are seen in either breast. IMPRESSION: INCOMPLETE: NEEDS ADDITIONAL IMAGING EVALUATION The oval focal asymmetry in the right breast is indeterminate. A targeted ultrasound is recommended and will immediately follow. Based on the Tyrer Cuzick model (a risk assessment model) the patient's lifetime risk is 19.4% and her 10 year risk is 5.2%. According to the ACR, ACS, and NCCN guidelines, an annual breast MRI exam along with mammogram is recommended if the patient's lifetime risk is 20% or greater. This exam was interpreted at Station ID: [id number]. NOTE: For mammograms, a report in lay terms will be sent to the patient. Approximately 15% of breast malignancies will not be visualized mammographically. In the management of a palpable breast mass, a negative mammogram must not discourage biopsy of a clinically suspicious lesion. Electronically Signed By: Salvador De Leon M.D. slc/:01/17/2024 13:05:09 ACR BI-RADS Category 0: Incomplete 3340F
== END ==
PROVIDERS: PCP Physician Assistant; Referring Provider Physician Assistant; Visit Provider Physician Assistant
DX: N63.13 Unspecified lump in the right breast, lower outer quadrant (principal); N64.4 Mastodynia; R92.8 Other abnormal and inconclusive findings on diagnostic imaging of breast; N60.01 Solitary cyst of right breast; N60.02 Solitary cyst of left breast; R92.333 Mammographic heterogeneous density, bilateral breasts
CPT/HCPCS: 76642; 77049; 77066; G0279; A9579

== ENCOUNTER 2024-02-29 22:14 | Emergency (ER) | payer OTHER, SELFPAY ==
[2024-02-29 22:17] VITALS: BP 132/63; PULSE 82; RESP 16; TEMP 36.8; O2SAT 97; BMI 28.8
--- NOTE | 2024-02-29 22:53 | ED.SKABFB ---
HPI - Skin/Abscess/Foreign Bdy General Chief complaint: Skin/Abscess/Foreign Body Stated complaint: Right arm pit pain Time Seen by Provider: 02/29/24 22:48 Source: patient Mode of arrival: Family Vehicle Limitations: no limitations History of Present Illness HPI narrative: 53-year-old woman with a history of hypertension ADHD depression, mild intermittent asthma prior episodes of melanoma and skin cancer that has been removed comes in from [facility] complaining of right axillary pain and swelling. She states that for the last 24 hours her right axilla was burning is if she had razor burn from shaving. She noticed increasing fullness tenderness and is worried that the pain is continuing after 24 hours. She has not describing fevers, chills or other systemic symptoms. There is no breast abnormalities masses nipple discharge and no hand or right extremity abnormalities appreciated. Related Data Previous Rx's Medication Instructions Recorded albuterol sulfate 90 mcg/actuation 2 puff inhalation Q4-6H PRN 08/02/22 aerosol inhaler shortness of breath or wheezing #3 ea bupropion HCl 150 mg 24 hr tablet, 150 mg PO QAM #90 tabs 04/27/23 extended release hydrochlorothiazide 12.5 mg capsule 12.5 mg PO DAILY #90 caps 08/16/23 losartan 25 mg tablet 25 mg PO DAILY #90 tabs 08/16/23 methylphenidate HCl 54 mg 54 mg PO DAILY #90 tabs 12/05/23 tablet,extended release 24 hr doxycycline hyclate 100 mg capsule 100 mg PO BID #20 caps 02/29/24 Allergies Allergy/AdvReac Type Severity Reaction Status Date / Time No Known Drug Allergies Allergy Verified 01/02/24 10:12 Review of Systems Review of Systems Narrative: Pertinent positive and negative findings as per HPI Patient History Medical History History of melanoma Family history of breast cancer Colon cancer screening (~04/23/20) Surgical History S/P cholecystectomy (~05/08/20) Family History Mother Cancer Sister Cancer Social History Smoking Status: Former smoker Smoking Status: Former smoker alcohol intake frequency: 0-2 drinks per day Substance Use Type: marijuana Exam Initial Vital Signs Initial Vital Signs: Vital Signs Temperature 98.3 F 02/29/24 22:17 Pulse Rate 82 02/29/24 22:17 Respiratory Rate 16 02/29/24 22:17 Blood Pressure 132/63 02/29/24 22:17 Pulse Oximetry 97 02/29/24 22:17 Oxygen Delivery Method Room Air 02/29/24 22:17 General: Alert appropriate in no acute distress Respiratory: Able to speak in full sentences, no obvious respiratory distress Chest: Right breast is unremarkable, no masses, no nipple discharge no skin discoloration. Right axilla is swollen without obvious individual adenopathy, abscess or overt cellulitis. There does appear to be minor irritation over the axillary skin only. Skin: No obvious rashes, warm and dry Neurologic: Grossly intact no obvious asymmetries or abnormalities Psych: appropriate insight and affect, cooperative Course Orders Ordered: Discontinued Medications Doxycycline Hyclate (Doxycycline Hyclate 100 Mg Tablet) 100 mg PO NOW ONE Stop: 02/29/24 23:46 Ibuprofen (Ibuprofen 400 Mg Tablet) 400 mg PO NOW ONE Stop: 02/29/24 23:46 Oxycodone/Acetaminophen (Oxycodone/Apap 5/325 Prepack) 1 bottle MISC DIRECTED ONE Stop: 02/29/24 23:46 Vital Signs Vital signs: Vital Signs - 8 hr 02/29/24 22:17 Temperature 98.3 F Pulse Rate 82 Respiratory Rate 16 Blood Pressure 132/63 Pulse Oximetry 97 Oxygen Delivery Method Room Air MDM - Skin/Abscess/Foreign Bdy MDM Narrative Medical decision making narrative: CC: Right axillary pain and swelling Complicating co-morbidities: Prior history of melanoma Data collected from: patient Differential considered: Axillary cellulitis, hidradenitis suppurativa, breast abscess with axillary adenopathy, right upper extremity infection with axillary adenopathy. Exam documented above, pertinent findings include: Right axilla is tender no discrete adenopathy is appreciated. Minor discoloration but no overt cellulitis certainly no abscess or fluctuance appreciated. She does not have cervical or supraclavicular adenopathy Discussion: 53-year-old woman with 24-36 hours of increasing right adnexal tenderness and swelling. Most likely explanation at this point is developing cellulitis or deeper infection and we will start her on doxycycline for 10 days. As it is unilateral with no evidence of edema other than the axilla I am not concerned particularly about a DVT. Right breast is unremarkable. No other skin source or area that drains to the axilla some seems to be infected. We had a long discussion regarding empiric treatment with antibiotics and pain medication. I told her if symptoms are not significantly improving by Tuesday she does need to be re-evaluated. Initial re-evaluation would need to include blood work and likely x-ray of the axilla. Expresses understanding and is safe for discharge home Discharge Plan Departure Patient Disposition: Home Clinical Impression: Cellulitis of right axilla Instructions: DI for Cellulitis -- Adult Activity Restrictions/Additional Instructions: Thank you for coming in today With the increasing pain and fullness in your right armpit I do think that you are developing an infection. I am going to start you on doxycycline and recommend that you complete the full 10 day course. Using 400 mg of ibuprofen (2 [id number] pills) and 1 Tylenol every 6 hours can be very helpful in controlling pain. For severe pain using 400 mg of ibuprofen and 1 Percocet can be helpful. If this is an infection you should be improving by Tuesday. If you find that you are getting worse developing new symptoms or have additional concerns you do need to be re-evaluated. Prescriptions: New doxycycline hyclate 100 mg capsule 100 mg PO BID Qty: 20 0RF No Action bupropion HCl 150 mg tablet extended release 24 hr 150 mg PO QAM Qty: 90 3RF methylphenidate HCl 54 mg tablet extended release 24hr 54 mg PO DAILY Qty: 90 0RF albuterol sulfate 90 mcg/actuation HFA aerosol inhaler 2 puff inhalation Q4-6H PRN (Reason: shortness of breath or wheezing) Qty: 3 4RF hydrochlorothiazide 12.5 mg capsule 12.5 mg PO DAILY Qty: 90 2RF losartan 25 mg tablet 25 mg PO DAILY Qty: 90 2RF Referrals: Jerri Montanez PA-C [Primary Care Provider] - Stand Alone Forms: Patient Portal/API
[2024-03-01 00:01] VITALS: BP 122/59; PULSE 70; RESP 16; TEMP 36.6; O2SAT 96
[2024-03-01] MEDS: IBUPROFEN 400 MG TABLET PO (00:02)
[2024-03-01] MEDS: OXYCODONE/APAP 5/325 PREPACK 1 BOTTLE MISC (00:02)
[2024-03-01] MEDS: DOXYCYCLINE HYCLATE 100 MG TABLET PO (00:02)
== END 2024-03-01 00:04 | disposition home or self-care (01) ==
PROVIDERS: Emergency Provider Emergency Medicine; PCP Physician Assistant
DX: L03.111 Cellulitis of right axilla (principal)
CPT/HCPCS: 99283

== ENCOUNTER → 2024-03-21 06:57 | Outpatient (CLI) | payer OTHER, SELFPAY ==
--- NOTE | 2024-03-21 06:58 | DI.US.S_ITS ---
PROCEDURE: US EXTREMITY NONVASC LOWER RT INDICATIONS: right plantar foot mass. TECHNIQUE: Real-time scanning was performed of the right foot , with image documentation. COMPARISON: None. FINDINGS: Multiple grayscale color Doppler images of the medial, plantar aspect of the right foot at the level of the distal metatarsals were acquired. There is a oval, hypoechoic complex mass without internal vascularity measuring approximately 0.7 x 0.5 x 1.1 cm in size. It is wider than tall in orientation. Minimal posterior enhancement. This is noted approximately 2 mm deep to the skin surface. No evidence to suggest invasion into the underlying musculature. IMPRESSION: Oval, hypoechoic nonvascular 1.1 cm soft tissue mass in the superficial subcutaneous soft tissues of the medial, plantar aspect of the right foot. Recommend dedicated radiographic evaluation of the right foot and if indicated, soft tissue MRI could be performed for further assessment. Dictated by: Wang Hampton M.D. on 03/21/2024 at 7:42 Approved by: Wang Hampton M.D. on 03/21/2024 at 7:47
--- NOTE | 2024-03-21 06:58 | DI.US.S_ITS ---
ULTRASOUND OF RIGHT AXILLA: 03/21/2024 CLINICAL: Rt axillary swelling/pain x 3 weeks, reduced swelling, continued pain. Comparison is made to exams dated: 01/18/2024 breast MRI, 01/17/2024 ultrasound, and 01/17/2024 mammogram - [facility]. Ultrasound of the right axilla was performed. No significant abnormalities were seen sonographically in the right axilla. IMPRESSION: NEGATIVE There is no sonographic evidence of malignancy. There is no abnormality seen to correspond with the area of clinical concern in the axilla, however, clinical correlation and clinical followup are recommended. Return to annual mammogram screening schedule is recommended. This exam was interpreted at Station ID: [id number]. Electronically Signed By: Geo Asif M.D. lc/:03/21/2024 07:50:36 letter sent: Clinical Evaluation Ultrasound BI-RADS: 1 Negative
== END ==
LOC: US 06:57
PROVIDERS: PCP Physician Assistant; Referring Provider Physician Assistant; Visit Provider Physician Assistant
DX: M79.89 Other specified soft tissue disorders (principal); R22.41 Localized swelling, mass and lump, right lower limb
CPT/HCPCS: 76882

== ENCOUNTER → 2024-04-24 11:07 | Outpatient (CLI) | payer OTHER, SELFPAY ==
--- NOTE | 2024-04-24 11:08 | DI.MRI.S_ITS ---
PROCEDURE: MR FOOT RT WO/W CON INDICATIONS: Localized swelling, mass and lump, right lower limb TECHNIQUE: Noncontrast coronal T1 spin echo and STIR, sagittal T1 spin echo with fat saturation and STIR, axial T1 spin echo and T2 fast spin echo with fat saturation. After the administration of contrast, axial/sagittal/coronal T1 spin echo with fat saturation through the right forefoot. COMPARISON: [facility] ([place]), CR, XR FOOT RT MIN 3V, 04/04/2024, 12:32. FINDINGS: Image quality: Excellent. Enhancement: At the plantar-medial aspect of the 1st metatarsal midshaft region and corresponding to the fiducial marker, there is a 0.2 x 1.0 x 1.1 cm ellipsoid focus of T1 hypointense, mildly T2 hyperintense dermal mass with mild, scattered internal enhancement (08/21; 05/20; ). The mass is confined to the subcutaneous tissues without infiltration into the underlying musculature or flexor tendons. Bone: The marrow signal is within normal limits. There is no acute fracture or dislocation. Joint: There is a small amount of fluid at the 1st MTP joint (02/21). Muscle: Overall muscle bulk is preserved without evidence of denervation. Tendon: The visualized flexor and extensor tendons are within normal limits. Ligaments: The Lisfranc ligament complex is preserved. The hallux inter sesamoid and metatarsal phalangeal ligaments are preserved. The plantar plates are intact. There may be partial disruption of the dorsal metatarsal phalangeal ligament of the 1st digit (). Other: Susceptibility artifact is present in the soft tissues at the plantar aspect of the 4th metatarsal proximal shaft (/), possibly secondary to retained foreign debris. IMPRESSION: 1. Small 1.1 cm left thyroid subcutaneous mass at the medial and plantar aspect of the 1st metatarsal shaft, which may represent fibrosis. Percutaneous sampling recommended for confirmation. 2. Small amount of fluid at the 1st MTP joint, possibly reactive to partial disruption of the dorsal 1st metatarsophalangeal joint. Dictated by: Moose Cochran M.D. on 04/24/2024 at 17:03 Approved by: Moose Cocharn M.D. on 04/24/2024 at 17:18
== END ==
PROVIDERS: PCP Physician Assistant; Referring Provider Physician Assistant; Visit Provider Physician Assistant
DX: R22.41 Localized swelling, mass and lump, right lower limb (principal)
CPT/HCPCS: 73720; A9579

== ENCOUNTER → 2024-06-21 09:31 | Outpatient (CLI) | payer OTHER, SELFPAY ==
[2024-06-21 19:49] LABS: Add Manual Diff / Slide Review NO; Basophils Absolute Auto 100 /uL (0-100); Basophils Percent Auto 0.7 % (0-2); Eosinophils Absolute Auto 700 /uL (0-450); Hematocrit 42.7 % (36-46); Hemoglobin 14.6 g/dL (12.0-16.0); Lymphocytes Absolute Auto 3000 /uL (1100-4500); Lymphocytes Percent Auto 28.6 % (25-40); Mean Corpuscular HGB Conc 34.2 % (30-36); Mean Corpuscular Hemoglobin 32.4 PG (26-34); Mean Corpuscular Volume 94.8 fL (80-100); Monocytes Absolute Auto 500 /uL (0-900); Monocytes Percent Auto 4.5 % (3-14); Neutrophils Absolute Auto 6300 /uL (1500-7000); Neutrophils Percent Auto 59.2 % (50-75); Platelet Count 352 X10^3/uL (150-400); Red Cell Distribution Width 13.4 % (11.6-14.8); White Blood Cell Count 10.6 X10^3/uL (4.5-11.0)
[2024-06-21 19:57] LABS: Alanine Aminotransferase 39 IU/L (<35); Albumin 4.5 g/dL (3.5-5.0); Albumin Globulin Ratio 1.5 (1.0-2.8); Alkaline Phosphatase 103 U/L (38-126); Aspartate Aminotransferase 32 IU/L (14-36); BUN Creatinine Ratio 13.5 (6-22); Bilirubin Total 0.6 mg/dL (0.2-1.3); Blood Urea Nitrogen 12 mg/dL (7-17); Calcium 9.9 mg/dL (8.4-10.2); Carbon Dioxide 28 mmol/L (22-32); Chloride 102 mmol/L (98-107); Cholesterol 210 mg/dL (140-199); Estimated Glomerular Filt Rate > 60 mL/min (>60); Globulin 3.1 g/dL (1.7-4.1); Glucose 101 mg/dL (70-100); HDL Cholesterol 62 mg/dL (40-60); HEMOLYSIS 19 (0-50); LDL Cholesterol Calculated 120 mg/dL (<100); Potassium 3.7 mmol/L (3.4-5.1); Sodium 137 mmol/L (137-145); Total Protein 7.6 g/dL (6.3-8.2); Triglycerides 142 mg/dL (35-150)
[2024-06-21 21:04] LABS: HIV 1 & 2 Ab/Ag 4th Gen Combo NEGATIVE (NEGATIVE); Hep C Virus Ab w/Reflex Quant NEGATIVE s/c (NEGATIVE)
== END ==
PROVIDERS: PCP Physician Assistant; Visit Provider Physician Assistant
DX: I10 Essential (primary) hypertension (principal); Z13.6 Encounter for screening for cardiovascular disorders; Z11.59 Encounter for screening for other viral diseases; D72.829 Elevated white blood cell count, unspecified; Z11.4 Encounter for screening for human immunodeficiency virus [HIV]
CPT/HCPCS: 80053; 80061; 85025; 86803; 87389

== ENCOUNTER 2024-10-01 18:43 | Emergency (ER) | payer OTHER, SELFPAY ==
[2024-10-01 18:48] VITALS: BP 222/103; PULSE 106; RESP 16; TEMP 36.6; O2SAT 98; BMI 28.8
--- NOTE | 2024-10-01 19:02 | DI.CT.S_ITS ---
PROCEDURE: CT LUMBAR SPINE WO CON INDICATIONS: lower back pain, loss bowel and bladder function TECHNIQUE: Noncontrast 3 mm thick sections acquired from the T12 level to the sacrum. Sagittal and coronal reformats were constructed. For radiation dose reduction, the following was used: automated exposure control. COMPARISON: None. FINDINGS: Image quality: Excellent. Bones: There is normal bony alignment. No acute vertebral body compression fractures. No suspicious lytic or blastic bony lesions. No pars defects. Minimal disc bulge at L3-4, L4-5. No gross spinal stenosis. Minimal left foraminal narrowing L3-4, bilateral L4-5. Soft tissues: No retroperitoneal masses or hematomas. Visualized aorta is normal in caliber. Liver is markedly enlarged. IMPRESSION: No gross spinal stenosis. Scattered minimal disc bulges and foraminal narrowing. Dictated by: Gloria Ayoub M.D. on 10/01/2024 at 20:02 Approved by: Gloria Ayoub M.D. on 10/01/2024 at 20:05
[2024-10-01 23:15] VITALS: BP 132/69; PULSE 73; O2SAT 99
[2024-10-02] VITALS (9 sets, daily range): BP systolic 142–175; BP diastolic 67–84; PULSE 64–79; RESP 18; O2SAT 95–98
--- NOTE | 2024-10-02 00:49 | PC.NURSE ---
Pt ambulatory to exam room without difficulty or assistance. States constant pain of 6-7/10, worse with twisting. States only the 1 episode of loss of bowel and bladder earlier today when the pop occurred as she was bending. States has had normal sensation and ability to control bowel and bladder since.
--- NOTE | 2024-10-02 01:37 | ED_ITS ---
HPI - Back Pain/Injury General Chief Complaint: Back Pain/Injury Stated Complaint: Fall, back px, lost control of bowels Time Seen by Provider: 10/02/24 01:03 Source: patient History of Present Illness HPI Narrative: 54-year-old female with left lower back pain for 3 days, not responsive to Tylenol and Motrin, initially happened while she had slipped while walking on a wet wood surface, she had not fall to ground, she had not have any glancing blow or drug below, had severe left lower back pain, had incontinence of urine and stool after that initial episode, however has been able to ambulate. No shaking or seizure activity. Numbness or tingling. No prior back surgeries or interventions. She drove herself from [employer], does not have any ride, we will be planning on driving herself back. Related Data Previous Rx's Medication Instructions Recorded amantadine HCl 100 mg tablet 100 mg PO BID #180 tabs 08/20/24 bupropion HCl 150 mg 24 hr tablet, 300 mg (2 x 150 mg) PO QAM #180 08/20/24 extended release tabs methylphenidate HCl 54 mg 54 mg PO DAILY #90 tabs 08/20/24 tablet,extended release 24 hr hydrochlorothiazide 12.5 mg capsule 12.5 mg PO DAILY #90 caps 08/27/24 albuterol sulfate 90 mcg/actuation 2 puff inhalation Q4-6H PRN 09/04/24 aerosol inhaler shortness of breath or wheezing #3 ea losartan 25 mg tablet 25 mg PO DAILY #90 tabs 09/04/24 hydrocodone 5 mg-acetaminophen 325 1 tab PO Q6H PRN pain #14 tabs 10/02/24 mg tablet methocarbamol 500 mg tablet 500 mg PO TID 7 days #21 tabs 10/02/24 Allergies Allergy/AdvReac Type Severity Reaction Status Date / Time No Known Drug Allergies Allergy Verified 05/30/24 16:24 Patient History Medical History (Updated 10/02/24 @ 01:54 by Tae Baptiste MD) Right axillary swelling History of melanoma Family history of breast cancer Colon cancer screening (~04/23/20) Surgical History S/P cholecystectomy (~05/08/20) Family History Mother Cancer Sister Cancer Social History Smoking Status: Former smoker Smoking Status: Former smoker alcohol intake frequency: 0-2 drinks per day Exam Narrative Exam Narrative: GENERAL: Well-developed patient, in mild distress. HEAD: Atraumatic. Normocephalic. EYES: Pupils equal round and reactive. Extraocular motions intact. No scleral icterus. No injection or drainage. ENT: Nose without bleeding, purulent drainage. Throat without erythema, tonsillar hypertrophy or exudate. Airway patent. NECK: Trachea midline. Non tender CARDIOVASCULAR: Regular rate and rhythm without murmurs, gallops, or rubs. RESPIRATORY: Clear to auscultation. Breath sounds equal bilaterally. No wheezes, rales, or rhonchi. GASTROINTESTINAL: Abdomen soft, non-tender, nondistended. EXTREMITIES: No edema or joint tenderness. BACK: Nontender without deformity or crepitance. No flank tenderness. Left lower paraspinal tenderness, no skin changes. No midline lumbar tenderness. NEURO: AOx3. Motor functions grossly nonfocal SKIN: No rash or erythema of visible areas Initial Vital Signs Initial Vital Signs: Vital Signs Temperature 97.9 F 10/01/24 18:48 Pulse Rate 106 H 10/01/24 18:48 Respiratory Rate 16 10/01/24 18:48 Blood Pressure 222/103 H 10/01/24 18:48 Pulse Oximetry 98 10/01/24 18:48 Oxygen Delivery Method Room Air 10/01/24 18:48 Course Orders Ordered: Discontinued Medications Hydrocodone Bitart/Acetaminophen (Hydrocodone/Acet 5/325 Prepack) [facility] Stop: 10/02/24 01:46 Last Admin: 10/02/24 01:55 Dose: 1 bottle Documented By: CONY Ketorolac Tromethamine (Ketorolac 30 Mg/Ml Vial) 30 mg IM NOW ONE Stop: 10/02/24 01:45 Last Admin: 10/02/24 01:49 Dose: 30 mg Documented By: CONY Methocarbamol (Methocarbamol 500 Mg Tablet) 500 mg PO NOW ONE Stop: 10/02/24 01:47 Last Admin: 10/02/24 01:55 Dose: 500 mg Documented By: LS Vital Signs Vital signs: Vital Signs - 8 hr 10/01/24 23:15 10/02/24 00:45 Pulse Rate 73 64 Respiratory Rate 18 Blood Pressure 132/69 152/77 H Pulse Oximetry 99 98 Oxygen Delivery Method Room Air Room Air MDM - Back Pain/Injury Imaging Data CT lumbar spine: Radiologist's Impression: Close Lumbar Spine CT (Signed) Gloria Ayoub - 10/01/24 Launch?[place] [id number] CT Scan Report Signed Patient: Padmini Cavanaugh MR#: [id number] : 1970 Acct:[id number] Age/Sex: 54 / F Date of Service: 10/01/24 Loc: ED Accession Number: [id number] Procedure: CT lumbar spine wo con Ordering Provider: Tae Baptiste MD PROCEDURE: CT LUMBAR SPINE WO CON INDICATIONS: lower back pain, loss bowel and bladder function TECHNIQUE: Noncontrast 3 mm thick sections acquired from the T12 level to the sacrum. Sagittal and coronal reformats were constructed. For radiation dose reduction, the following was used: automated exposure control. COMPARISON: None. FINDINGS: Image quality: Excellent. Bones: There is normal bony alignment. No acute vertebral body compression fractures. No suspicious lytic or blastic bony lesions. No pars defects. Minimal disc bulge at L3-4, L4-5. No gross spinal stenosis. Minimal left foraminal narrowing L3-4, bilateral L4-5. Soft tissues: No retroperitoneal masses or hematomas. Visualized aorta is normal in caliber. Liver is markedly enlarged. IMPRESSION: No gross spinal stenosis. Scattered minimal disc bulges and foraminal narrowing. Dictated by: Gloria Ayoub M.D. on 10/01/2024 at 20:02 Approved by: Gloria Ayoub M.D. on 10/01/2024 at 20:05 [facility] Narrative Medical decision making narrative: 54-year-old with mechanical slip on wet [place] surface 3 days ago, left lower back pain, initial incontinence of urine and stool, no subsequent incontinence, persisting left-sided pain, no numbness or tingling to the perineum. Pain not responsive to [id number] Tylenol or Motrin. Drove herself from [facility], we will be taking early [address] [place] back. CT lumbar spine imaging ordered from triage. CT lumbar spine showed no acute changes. Patient improved in symptoms with injectable Toradol, we will drive self, hold sedating medications. Home pack of hydrocodone/APAP dispensed. Prescription for further hydrocodone, and also muscle relaxant Robaxin sent to her pharmacy. Recheck advised later this this week with her primary care provider. [place] better, wanted to go home, discharged home. Return precautions discussed. Discharge Plan Departure Patient Disposition: Home Clinical Impression: Acute lumbar myofascial strain, Acute low back pain, Lumbar back pain Instructions: DI for Muscle Strain, DI for Back Strain or Sprain Activity Restrictions/Additional Instructions: Slip on wood surface mechanical mechanism of low back strain 3 days ago, initial incontinence of urine and stool from that event, none subsequent. But persisting left low back discomfort. On examination without midline tenderness. However given mechanism and incontinence initially, CT lumbar spine imaging was ordered from triage. CT lumbar spine showed no acute bony changes. Copy of the report provided. It is very possible he had myofascial strain. Sometimes there can also be bulging of the disc that you can not see on CT scanning readily. Trial of anti-inflammatory medication. Injection of Toradol given in the emergency department. Continue use of ibuprofen. Consider use of muscle relaxant if this might be helpful in the near term, prescription for Robaxin/methocarbamol sent to your pharmacy. Home pack pain medication hydrocodone/acetaminophen also provided, to take as needed and if needed for additional pain relief. Recheck advised with your regular doctor in the next 2- 3 days. Return to this/nearest emergency department for any change worsening symptoms or any concerns prior Prescriptions: New methocarbamol 500 mg tablet 500 mg PO TID 7 Days Qty: 21 0RF hydrocodone-acetaminophen 5-325 mg tablet 1 tab PO Q6H PRN (Reason: pain) Qty: 14 0RF No Action methylphenidate HCl 54 mg tablet extended release 24hr 54 mg PO DAILY Qty: 90 0RF bupropion HCl 150 mg tablet extended release 24 hr 300 mg PO QAM Qty: 180 3RF amantadine HCl 100 mg tablet 100 mg PO BID Qty: 180 3RF hydrochlorothiazide 12.5 mg capsule 12.5 mg PO DAILY Qty: 90 0RF losartan 25 mg tablet 25 mg PO DAILY Qty: 90 2RF albuterol sulfate 90 mcg/actuation HFA aerosol inhaler 2 puff inhalation Q4-6H PRN (Reason: shortness of breath or wheezing) Qty: 3 4RF Referrals: Jerri Montanez PA-C [Primary Care Provider] - Stand Alone Forms: Patient Portal/API/Survey
[2024-10-02] MEDS: KETOROLAC 30 MG/ML VIAL IM (01:49)
--- NOTE | 2024-10-02 01:54 | PC.NURSE ---
Pt d/c'd per Dr. Baptiste at this time but will remain in department until morning vani begins to run.
[2024-10-02] MEDS: methocarbamoL 500 MG TABLET PO (01:55)
[2024-10-02] MEDS: HYDROCODONE/ACET 5/325 PREPACK 1 BOTTLE MISC (01:55)
== END 2024-10-02 04:39 | disposition home or self-care (01) ==
PROVIDERS: Emergency Provider Emergency Medicine; PCP Physician Assistant
DX: S39.012A Strain of muscle, fascia and tendon of lower back, initial encounter (principal); R15.9 Full incontinence of feces; R32 Unspecified urinary incontinence; W18.40XA Slipping, tripping and stumbling without falling, unspecified, initial encounter
CPT/HCPCS: 72131; 96372; 99283; 99284; J1885

== ENCOUNTER → 2024-10-10 13:31 | Outpatient (CLI) | payer OTHER, SELFPAY ==
[2024-10-10 19:25] LABS: Alanine Aminotransferase 27 IU/L (<35); Albumin Globulin Ratio 1.7 (1.0-2.8); Alkaline Phosphatase 94 U/L (38-126); Aspartate Aminotransferase 26 IU/L (14-36); BUN Creatinine Ratio 15.9 (6-22); Bilirubin Total 0.4 mg/dL (0.2-1.3); Bilirubin Unconjugated 0.2 mg/dL (0.0-1.1); Blood Urea Nitrogen 13 mg/dL (7-17); Estimated Glomerular Filt Rate > 60 mL/min (>60); HEMOLYSIS 18 (0-50)
== END ==
PROVIDERS: PCP Physician Assistant; Visit Provider Physician Assistant
DX: Z01.812 Encounter for preprocedural laboratory examination (principal); R16.0 Hepatomegaly, not elsewhere classified
CPT/HCPCS: 80076; 82565; 84520

== ENCOUNTER → 2024-10-25 12:33 | Outpatient (CLI) | payer OTHER, SELFPAY ==
--- NOTE | 2024-10-25 12:34 | DI.CT.S_ITS ---
PROCEDURE: CT ABDOMEN PELVIS W CON INDICATIONS: dedicated eval of liver: markedly enlarged 10/01/24 CT spine TECHNIQUE: After the administration of intravenous contrast, axial sections acquired from the lung bases to the pubic symphysis. Coronal and sagittal reformats were performed. For radiation dose reduction, the following was used: automated exposure control, adjustment of mA and/or kV according to patient size. COMPARISON: None. FINDINGS: Image quality: Diagnostic. Lower Chest: No significant findings. ABDOMEN: Liver: No solid mass. Gallbladder: Absent Biliary ducts: No biliary dilation. Pancreas: No ductal dilation. Spleen: Size is within normal limits. Adrenal Glands: No adrenal nodules. Kidneys and Ureters: No hydronephrosis. No solid mass. No complex renal cystic lesion which requires follow up. Stomach and Bowel: Normal colonic caliber, without significant wall thickening. Appendectomy. No significant diverticular disease. Peritoneum: No abnormal intraperitoneal fluid. No free air. Ventral Wall: Small supraumbilical hernia containing fat. Abdominal Nodes: No retroperitoneal or mesenteric adenopathy by size criteria. Vessels: Aorta and inferior vena cava are normal in size. PELVIS: Pelvic Organs: Unremarkable. Bladder: No bladder wall thickening, accounting for underdistention. Pelvic Nodes: No enlarged lymph nodes. Miscellaneous: No inguinal hernias are seen. Bones: No aggressive osseous abnormality. Degenerative disc disease of the lumbar spine. This is most prominent at L5-S1 with a mild disc herniation but no significant spinal canal narrowing. IMPRESSION: No findings to explain the patient's bladder and bowel incontinence. No cystocele/rectocele or significant spinal canal narrowing. Dictated by: Richard Willard M.D. on 10/25/2024 at 17:01 Approved by: Richard Willard M.D. on 10/25/2024 at 17:04
== END ==
PROVIDERS: PCP Physician Assistant; Referring Provider Physician Assistant; Visit Provider Physician Assistant
DX: M51.369 Other intervertebral disc degeneration, lumbar region without mention of lumbar back pain or lower extremity pain (principal); M51.379 Other intervertebral disc degeneration, lumbosacral region without mention of lumbar back pain or lower extremity pain; K42.9 Umbilical hernia without obstruction or gangrene; R16.0 Hepatomegaly, not elsewhere classified; Z85.820 Personal history of malignant melanoma of skin; Z90.49 Acquired absence of other specified parts of digestive tract
CPT/HCPCS: 74177; Q9967

== ENCOUNTER → 2025-02-23 11:18 | Outpatient (CLI) | payer OTHER, SELFPAY ==
--- NOTE | 2025-02-23 11:19 | DI.MG.S_ITS ---
MM screening mammo BI: 02/23/2025. BI-RADS: 1 CLINICAL: 54-year old female for bilateral screening mammogram. Tyrer-Cuzick lifetime risk of 9.8%. No personal or first-degree family history of breast cancer. PRIOR EXAMS 03/21/2024, 01/18/2024, 01/17/2024, 06/21/2023, 06/20/2023, 12/24/2022, 09/07/2022, 02/23/2022, 01/25/2022, 12/27/2020, 01/06/2019. MAMMOGRAPHY TECHNIQUE: 2D and 3D (tomosynthesis) digital mammographic views obtained, with additional images as needed for full coverage. Current study was also evaluated with a Computer Aided Detection (CAD) system. DENSITY C. The breasts are heterogeneously dense, which may obscure small masses. MAMMOGRAPHY FINDINGS Bilateral: No suspicious mass, asymmetry, microcalcification, or other abnormality seen. IMPRESSION: * No evidence of malignancy. RECOMMENDATIONS Bilateral * Annual screening mammography. OVERALL ASSESSMENT CATEGORY BI-RADS-1: Negative. The [employer] recommends annual screening mammography beginning at age 40 for women with average risk of breast cancer. ELECTRONICALLY SIGNED: Wang Hampton M.D. on 02/25/2025 at 07:17:16 AM PT Interpreting Station ID: [id number]
== END ==
PROVIDERS: PCP Physician Assistant; Referring Provider Physician Assistant; Visit Provider Physician Assistant
DX: Z12.31 Encounter for screening mammogram for malignant neoplasm of breast (principal); R92.333 Mammographic heterogeneous density, bilateral breasts
CPT/HCPCS: 77063; 77067

== ENCOUNTER → 2025-04-08 12:00 | Outpatient (CLI) | payer OTHER, SELFPAY ==
[2025-04-08 19:37] LABS: Blood Urea Nitrogen 12 mg/dL (7-17); Calcium 10.1 mg/dL (8.4-10.2); Carbon Dioxide 28 mmol/L (22-32); Chloride 102 mmol/L (98-107); Estimated Glomerular Filt Rate > 60 mL/min (>60); Glucose 100 mg/dL (70-99); HEMOLYSIS 19 (0-50); Potassium 4.0 mmol/L (3.4-5.1); Sodium 138 mmol/L (137-145)
== END ==
PROVIDERS: PCP Physician Assistant; Visit Provider Podiatrist
DX: Z01.812 Encounter for preprocedural laboratory examination (principal); Z01.818 Encounter for other preprocedural examination
CPT/HCPCS: 80048

== ENCOUNTER → 2025-08-19 13:30 | Outpatient (CLI) | payer OTHER, SELFPAY ==
--- NOTE | 2025-08-19 13:31 | DI.RAD.S_ITS ---
PROCEDURE: XR CERVICAL SPINE 4V OR 5V INDICATIONS: Cervical spondylosis TECHNIQUE: 5 views of the cervical spine acquired. COMPARISON: None. FINDINGS: Bones: No fractures or dislocations to the T1 level. Grade 1 C3 on C4 and C4 on C5 anterolisthesis. Straightening of the cervical spine alignment. Mild levoscoliosis. Multilevel degenerative disc disease most pronounced at the moderate C4-5, C5-6, C6-7 and C7-T1 disc narrowing. Multilevel facet arthropathy is most pronounced at C3-4, C4-5. Moderate right C3-4 foraminal stenosis. No significant left-sided foraminal stenosis. Soft tissues: No prevertebral soft tissue swelling. IMPRESSION: No acute fracture. Multilevel degenerative disc and facet arthropathy as described above. Dictated by: Pepper Tang M.D. on 08/20/2025 at 9:00 Approved by: Pepper Tang M.D. on 08/20/2025 at 9:03
== END ==
PROVIDERS: PCP Physician Assistant; Referring Provider Physical Medicine & Rehabilitation; Visit Provider Physical Medicine & Rehabilitation
DX: M47.812 Spondylosis without myelopathy or radiculopathy, cervical region (principal); M50.321 Other cervical disc degeneration at C4-C5 level; M48.02 Spinal stenosis, cervical region
CPT/HCPCS: 72050

== ENCOUNTER → 2025-09-05 08:48 | Outpatient (CLI) | payer OTHER, SELFPAY ==
[2025-09-05 19:21] LABS: Add Manual Diff / Slide Review NO; Hematocrit 42.7 % (36-46); Hemoglobin 14.5 g/dL (12.0-16.0); Lymphocytes Absolute Auto 3000 /uL (1100-4500); Mean Corpuscular HGB Conc 34.0 % (30-36); Mean Corpuscular Hemoglobin 31.7 PG (26-34); Mean Corpuscular Volume 93.1 fL (80-100); Platelet Count 367 X10^3/uL (150-400)
[2025-09-05 19:31] LABS: Alanine Aminotransferase 35 IU/L (<35); Albumin 4.4 g/dL (3.5-5.0); Albumin Globulin Ratio 1.6 (1.0-2.8); Alkaline Phosphatase 102 U/L (38-126); Blood Urea Nitrogen 18 mg/dL (7-17); Calcium 9.7 mg/dL (8.4-10.2); Carbon Dioxide 27 mmol/L (22-32); Chloride 105 mmol/L (98-107); Cholesterol 222 mg/dL (140-199); Estimated Glomerular Filt Rate > 60 mL/min (>60); Globulin 2.8 g/dL (1.7-4.1); Glucose 101 mg/dL (70-99); HDL Cholesterol 51 mg/dL (40-60); HEMOLYSIS < 15 (0-50); Potassium 4.2 mmol/L (3.4-5.1); Sodium 140 mmol/L (137-145); Total Protein 7.2 g/dL (6.3-8.2); Triglycerides 227 mg/dL (35-150)
== END ==
PROVIDERS: PCP Physician Assistant; Referring Provider Physician Assistant Medical; Visit Provider Physician Assistant Medical
DX: Z13.6 Encounter for screening for cardiovascular disorders (principal); R16.0 Hepatomegaly, not elsewhere classified; I10 Essential (primary) hypertension; Z79.899 Other long term (current) drug therapy
CPT/HCPCS: 80053; 80061; 85025

== ENCOUNTER → 2025-09-17 14:12 | Outpatient (CLI) | payer OTHER, SELFPAY ==
--- NOTE | 2025-09-17 14:13 | DI.US.S_ITS ---
PROCEDURE: US ABDOMEN LIMITED INDICATIONS: hernia TECHNIQUE: Real-time focused scanning was performed of the abdominal wall, with image documentation. COMPARISON: [facility], US, US ABDOMEN COMPLETE, 08/11/2018, 10:06. FINDINGS/IMPRESSION: At patient's area of concern, about the umbilicus, there is a 4.0 x 2.0 x 2.5 cm fat containing supraumbilical hernia, with hernia neck of 1.1 cm. Dictated by: Zahida Lamas M.D. on 09/18/2025 at 13:08 Approved by: Zahida Lamas M.D. on 09/18/2025 at 13:09
--- NOTE | 2025-09-17 14:13 | DI.RAD.S_ITS ---
PROCEDURE: XR DEXA AXIAL SKELETON INDICATIONS: bone density screening COMPARISON: None. FINDINGS: Lumbar Spine: Bone mineral density 0.895 g/cm2, T score -1.4. Left Femoral Neck: Bone mineral density 0.788 g/cm2, T score -0.5. Left Hip: Bone mineral density 0.906 g/cm2, T score -0.3. Fracture Risk Calculation (when applicable): 10-year fracture risk of a major osteoporotic fracture 5.0 percent and of a hip fracture 0.1 percent. (T score greater or equal to -1.0 to: NORMAL) (T score from -1.1 to -2.4: OSTEOPENIA) (T score less than or equal to -2.5: OSTEOPOROSIS) IMPRESSION: Osteopenia Follow-up guidelines as follows: Osteoporosis: Consider a repeat DEXA and Vertebral Fracture Assessment (VFA) exam in 2 years or sooner if medically necessary, to reassess this patient's status. Osteopenia: Consider a repeat DEXA in 2-3 years to reassess this patient's status, or if there is a new clinical indication. Normal: Consider a repeat DEXA in 5 years or sooner, or if there is a new clinical indication. All treatment decisions require clinical judgment and consideration of individual patient factors, including patient preferences, comorbidities, previous drug use, risk factors not captured in the FRAX model (e.g., frailty, falls, vitamin D deficiency, increased bone turnover, interval significant decline in bone density ) and possible under- or over-estimation of fracture risk by FRAX. In addition, the NOF Guide recommends that FDA-approved medical therapies be considered in postmenopausal women and men age >= 50 years with a: * Hip or vertebral (clinical or morphometric) fracture * T-score of <=-2.5 at the spine or hip * Ten-year fracture probability by FRAX of >= 3% for hip fracture or >=20% for major osteoporotic fracture. Dictated by: Aniket Merchant M.D. on 09/18/2025 at 15:20 Approved by: Aniket Merchant M.D. on 09/18/2025 at 15:21
== END ==
LOC: RAD 14:13
PROVIDERS: PCP Physician Assistant; Referring Provider Physician Assistant; Visit Provider Physician Assistant
DX: K42.9 Umbilical hernia without obstruction or gangrene (principal); M85.88 Other specified disorders of bone density and structure, other site; Z78.0 Asymptomatic menopausal state
CPT/HCPCS: 76705; 77080